=== PATIENT | male | born 1955 | race Caucasian/White ===

== ENCOUNTER → 2016-06-06 | Outpatient (CLI) | payer BC ==
[~2016-06-06] MED LIST: BUPR150T5 PO; BUPR75TA20 PO; BUSP5TAB59 PO; LAMO150T32 PO; LORA0.5T12 PO; NF656 TD; OXYC-57 PO; PREG1CAP36 PO; ZOLP5TAB6 PO; [UNRECOGNIZED DRUG - CODE] TOP
[2016-06-06 09:33] LABS: BASO % 0.7 %; BASO ABS # 0.03 K/uL (0-0.2); COMPLETE YES; EOS % 7.4 %; HEMATOCRIT 40.4 % (42-52); IG% 0.7 %; LYMPH ABS # 0.96 K/uL (1.2-3.4); MEAN CELL VOLUME 83.8 fL (80-100); MEAN CORPUSCULAR HEMOGLOBIN 29.3 pg (25-34); MEAN CORPUSCULAR HGB CONC 34.9 g/dl (32-36); MEAN PLATELET VOLUME 10.3 fL (7.4-10.4); MONO % 17.7 %; NEUT % 50.5 %; PLATELET COUNT 274 K/uL (130-400); RED BLOOD COUNT 4.82 M/uL (4.7-6.1); WHITE BLOOD COUNT 4.17 K/uL (4.8-10.8)
[2016-06-06 09:44] LABS: BLOOD UREA NITROGEN 11 mg/dl (7-18); BUN/CREATININE RATIO 12.1 (10-20); CALCIUM 8.8 mg/dl (8.5-10.1); CARBON DIOXIDE 28 mmol/L (21-32); CHLORIDE 96 mmol/L (98-107); CHOLESTEROL 157 mg/dl (0-200); GLUCOSE 102 mg/dl (70-99); POTASSIUM 4.2 mmol/L (3.5-5.1); SODIUM 131 mmol/L (136-145)
[2016-06-06 09:51] LABS: FERRITIN 65.5 ng/ml (8.0-388.0); HDL CHOLESTEROL 80 mg/dl; LDL CHOLESTEROL CALCULATED 69 mg/dl; PROSTATE SPECIFIC ANTIGEN 0.341 ng/ml (0.000-4.000); TRIGLYCERIDES 38 mg/dl (0-150); VERY LOW DENSITY LIPOPROT CALC 8 mg/dl
[2016-06-06 11:06] LABS: ESTIMATED AVERAGE GLUCOSE 114 mg/dl; HA1C FLAG Normal (Normal)
== END | disposition home or self-care (01) ==
LOC: C.LAB1850 07:55
PROVIDERS: ATTEND Internal Medicine
DX: R73.03 Prediabetes (principal); Z12.5 Encounter for screening for malignant neoplasm of prostate; Z13.220 Encounter for screening for lipoid disorders; Z86.2 Personal history of diseases of the blood and blood-forming organs and certain disorders involving the immune mechanism

== ENCOUNTER 2016-12-16 19:25 | Emergency (ER) | payer BC ==
[~2016-12-16] VITALS: Ht 180.3 cm; Wt 78.0 kg
[~2016-12-16 19:25] MED LIST changes: -BUPR150T5 PO; -BUSP5TAB59 PO; -LAMO150T32 PO; -LORA0.5T12 PO; -NF656 TD; -OXYC-57 PO; -ZOLP5TAB6 PO; -[UNRECOGNIZED DRUG - CODE] TOP
[2016-12-16 19:29] VITALS: TEMP 36.6; Ht 180.3 cm; Wt 78.0 kg
[2016-12-16] MEDS ORDERED: KETOROLAC TROMETHAMINE 30 MG/ML VIAL IV STA (19:34)
[2016-12-16] MEDS ORDERED: ONDANSETRON INJ 2 MG/ML 2 ML VIAL IV STA (19:34)
[2016-12-16] MEDS ORDERED: HYDROmorphone INJ 2 MG/ML SYR/VIAL IV STA ×2 (19:34→21:04)
[2016-12-16] MEDS ORDERED: SODIUM CHLORIDE 0.9% 500ML 500 ML IV STA (19:34)
[2016-12-16] MEDS ORDERED: CYCLOBENZAPRINE HCL 10 MG TAB PO STA (19:34)
--- NOTE | 2016-12-16 19:34 | EMERGENCY ROOM VISIT NOTE ---
History Report prepared by Dipesh: Niharika Ferguson Under the Supervision of: Dr. Nghia Moreno M.D. 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 He was brought to the ED via EMS. He reports he was lifting himself to look out a window in order to get a better view of the front of his home, when he suddenly experienced "sharp" back pain and he "went down to all fours". He rates his discomfort as a 7/10 in severity. Movement worsens his pain. Oxycodone provided minimal relief. The patient admits to a history of a bulging disc and notes he has experienced similar pain before. He was eventually sent to Physical Therapy , which provided good relief. He states he felt totally fine earlier in the day and was getting ready to go out to dinner with his when his pain started. The patient denies any numbness or weakness in his legs. He has experienced no loss of bowel or bladder function. He takes no daily blood thinners. 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 A total of 10 systems reviewed and were otherwise negative. Past Medical & Surgical Medical Problems: (1) Bulging disc (2) Testicular cancer Social History Smoking Status: Never Smoker Alcohol Use: occasionally Drug Use: none Marital Status: Housing Status: lives with family Occupation Status: employed Current/Historical Medications Scheduled Bupropion Hcl (Bupropion Hcl Xl), 450 MG PO QAM Buspirone Hcl (Buspirone Hcl), 5 MG PO BID Halobetasol Propionate (Ultravate 0.05% Cream), 1 APPLN TOP UD Lamotrigine (Lamictal), 150 MG PO BID Scheduled PRN Lorazepam (Lorazepam), 0.5 MG PO DAILY PRN for Anxiety Zolpidem Tartrate (Zolpidem Tartrate), 5 MG PO HS PRN for Sleep Allergies Coded Allergies: No Known Allergies (Unverified Allergy, Mild, 02/04/06) Physical Exam Vital Signs Date Time Temp Pulse Resp B/P (MAP) Pulse Ox O2 Delivery O2 Flow Rate FiO2 12/16/16 20:52 58 20 151/93 94 Room Air 12/16/16 19:29 36.6 59 18 185/96 98 Physical Exam GENERAL: Patient is in no acute distress. HEENT: No acute trauma, normocephalic atraumatic, mucous membranes moist, no nasal congestion, no scleral icterus. NECK: No stridor, no adenopathy, no meningismus, trachea is midline. LUNGS: Clear to auscultation bilaterally, no wheeze, no rhonchi, breath sounds equal. HEART: Without murmurs gallops or rubs, regular rate and rhythm. BACK: Not performed as the patient was having too much pain to roll. ABDOMEN: Soft, nontender, bowel sounds positive, no hernias, no peritonitis. EXTREMITIES: No cyanosis or edema, full range of motion of all the joints without pain or difficulty, no signs for acute trauma. NEUROLOGIC: Oriented x 3, no acute motor or sensory deficits, no focal weakness. Cannot elicit patellar or Achilles reflexes, but the patient is quite tense. SKIN: No rash, no jaundice, no diaphoresis. Medical Decision & Procedures ER Provider Diagnostic Interpretation: Radiology results as stated below per my review and radiologist interpretation: LUMBAR SPINE 5 VIEWS HISTORY: pain, low back COMPARISON: Lumbar spine 02/04/2006. FINDINGS: There is no fracture. Mild dextroscoliosis which could be positional. Multiple surgical clips overlying the spine and right hemipelvis. 9 mm of anterolisthesis of L5 on S1. This appears to be secondary to the bilateral L5 spondylolysis. This is similar to the prior study. Severe disc space narrowing at L5-S1 which has progressed. Mild disc space narrowing at L3-L4 has also progressed. Moderate disc space narrowing at T12-L1 and mild disc space narrowing at L1-L2 has also progressed. Small endplate osteophytes throughout the lumbar spine. IMPRESSION: 1. No acute fractures within the lumbar spine. 2. Progressive multilevel degenerative disc disease as described above. 3. Bilateral L5 spondylolysis with associated grade I/II anterolisthesis. This is similar to the prior study. Electronically signed by: Galo Kumar M.D. 12/16/2016 9:01 PM Laboratory Results 12/16/16 19:45 12/16/16 19:45 Test 12/16/16 19:45 Red Blood Count 4.51 M/uL (4.7-6.1) Mean Corpuscular Volume 86.9 fL (80-100) Mean Corpuscular Hemoglobin 29.3 pg (25-34) Mean Corpuscular Hemoglobin Concent 33.7 g/dl (32-36) RDW Standard Deviation 42.2 fL (36.4-46.3) RDW Coefficient of Variation 13.2 % (11.5-14.5) Mean Platelet Volume 10.4 fL (7.4-10.4) Erythrocyte Sedimentation Rate 2 mm/hr (0-14) Anion Gap 9.0 mmol/L (3-11) Est Creatinine Clear Calc Drug Dose 84.7 ml/min Estimated GFR () 95.1 Estimated GFR (Non- 82.0 BUN/Creatinine Ratio 15.5 (10-20) Calcium Level 8.8 mg/dl (8.5-10.1) Medications Administered Medications (Trade) Dose Ordered Sig/Zechariah Route Start Time Stop Time Status Last Admin Dose Admin Sodium Chloride 500 ml @ 999 mls/hr Q31M STAT IV 12/16/16 19:34 12/16/16 20:04 DC 12/16/16 20:04 999 MLS/HR Cyclobenzaprine HCl (Flexeril Tab) 10 mg NOW STAT PO 12/16/16 19:34 12/16/16 19:37 DC 12/16/16 20:05 10 MG Hydromorphone HCl (Dilaudid Inj) 1 mg NOW STAT IV 12/16/16 19:34 12/16/16 19:37 DC 12/16/16 20:04 1 MG Ondansetron HCl (Zofran Inj) 4 mg NOW STAT IV 12/16/16 19:34 12/16/16 19:37 DC 12/16/16 20:04 4 MG Dexamethasone Sodium Phosphate (Decadron Inj) 10 mg NOW ONCE IV 12/16/16 19:45 12/16/16 19:46 DC 12/16/16 20:05 10 MG Ketorolac Tromethamine (Toradol Inj) 30 mg NOW STAT IV 12/16/16 19:34 12/16/16 19:37 DC 12/16/16 20:04 30 MG Hydromorphone HCl (Dilaudid Inj) 1 mg STK-MED ONCE .ROUTE 12/16/16 21:21 12/16/16 21:22 DC 12/16/16 21:24 1 MG ED Course 1926: The patient was evaluated in room C7. A complete history and physical exam was performed. 1933: Toradol 30 mg IV, Zofran 4 mg IV, Dilaudid 1 mg IV, Flexeril 10 mg PO, NSS 500 ml @ 999 mls/hr IV. 1644: Decadron 10 mg IV. 2116: I reevaluated the patient. He is feeling a little more comfortable. I discussed my recommendation we proceed with an MRI and the patient and his family are agreeable with this plan. 2120: Dilaudid 1 mg IV. 2229: This patient is a sign out to Dr. Jeff Short at the end of my shift. Medical Decision The differential diagnoses considered include lumbar fracture, disc herniation, muscle spasm, nerve impingement and sciatica. There is no leukocytosis or worrisome anemia. No significant electrolyte abnormality or kidney failure. Sedimentation rate is not elevated making ongoing infection/inflammation less likely. Lumbar spine series shows significant arthritis and spurring. There was disc space narrowing. No obvious fractures. MRI of the lumbar spine is pending. The patient received IV Decadron, IV saline, IV Toradol, IV Dilaudid and IV Zofran. He received a second dose of IV Dilaudid. He is still having pain although it is improved. I cannot elicit reflexes in either the left or right lower extremity. The patient does have a history of issues with his back but given the x-ray findings , given how much discomfort he seems to be in, I did think further imaging was warranted. The MRI was felt the best study. The patient's case is going to be assumed by Dr. Short, please see his notes for the final disposition and plan. Please see his notes for the results of the MRI. Medication Reconcilliation Current Medication List: was personally reviewed by me Blood Pressure Screening Patient's blood pressure: Elevated blood pressure Blood pressure disposition: Elevated BP felt to be situational Impression Primary Impression: Lower back pain Scribe Attestation The scribe's documentation has been prepared under my direction and personally reviewed by me in its entirety. I confirm that the note above accurately reflects all work, treatment, procedures, and medical decision making performed by me. Departure Information Dispostion Still a Patient Referrals Pro,Keshav Claros M.D. (PCP) Patient Instructions My [facility]
[2016-12-16] MEDS ORDERED: DEXAMETHASONE SOD INJ 10 MG/ML VIAL IV ONE (19:45)
[2016-12-16] MEDS ORDERED: BUPR150T5 PO (19:46)
[2016-12-16] MEDS ORDERED: BUSP5TAB59 PO (19:46)
[2016-12-16] MEDS ORDERED: ZOLP5TAB6 PO (19:46)
[2016-12-16] MEDS ORDERED: [UNRECOGNIZED DRUG - CODE] TOP (19:46)
[2016-12-16] MEDS ORDERED: LORA0.5T12 PO (19:46)
[2016-12-16] MEDS ORDERED: LAMO150T32 PO (19:46)
--- NOTE | 2016-12-16 21:03 | DIAGNOSTIC IMAGING REPORT ---
LUMBAR SPINE 5 VIEWS HISTORY: pain, low back COMPARISON: Lumbar spine 02/04/2006. FINDINGS: There is no fracture. Mild dextroscoliosis which could be positional. Multiple surgical clips overlying the spine and right hemipelvis. 9 mm of anterolisthesis of L5 on S1. This appears to be secondary to the bilateral L5 spondylolysis. This is similar to the prior study. Severe disc space narrowing at L5-S1 which has progressed. Mild disc space narrowing at L3-L4 has also progressed. Moderate disc space narrowing at T12-L1 and mild disc space narrowing at L1-L2 has also progressed. Small endplate osteophytes throughout the lumbar spine. IMPRESSION: 1. No acute fractures within the lumbar spine. 2. Progressive multilevel degenerative disc disease as described above. 3. Bilateral L5 spondylolysis with associated grade I/II anterolisthesis. This is similar to the prior study. Electronically signed by: Galo Kumar M.D. 12/16/2016 9:01 PM Dictated Date/Time: 12/16/2016 8:59 PM
[2016-12-16] MEDS ORDERED: HYDROmorphone INJ 1 MG/ML SYR ONE (21:21)
[2016-12-16 21:39] LABS: HEMATOCRIT 39.2 % (42-52); MEAN CELL VOLUME 86.9 fL (80-100); MEAN CORPUSCULAR HEMOGLOBIN 29.3 pg (25-34); MEAN CORPUSCULAR HGB CONC 33.7 g/dl (32-36); MEAN PLATELET VOLUME 10.4 fL (7.4-10.4); PLATELET COUNT 289 K/uL (130-400); RED BLOOD COUNT 4.51 M/uL (4.7-6.1); WHITE BLOOD COUNT 6.08 K/uL (4.8-10.8)
[2016-12-16 22:01] LABS: BUN/CREATININE RATIO 15.5 (10-20); CALCIUM 8.8 mg/dl (8.5-10.1); POTASSIUM 3.7 mmol/L (3.5-5.1)
[2016-12-16] MEDS ORDERED: GADAVIST IV PRN (23:15)
[2016-12-17] MEDS ORDERED: LIDODERM (LIDOCAINE) PATCH 5% TD STA (00:29)
[2016-12-17] MEDS ORDERED: PERCOCET HOME PACK PO ONE (00:30)
[2016-12-17] MEDS ORDERED: HYDROmorphone INJ 1 MG/ML SYR IV STA (00:35)
[2016-12-17] MEDS ORDERED: OXYC-57 PO (00:39)
[2016-12-17] MEDS ORDERED: NF656 TD (00:39)
[2016-12-17 01:12] VITALS: BP 149/82; PULSE 62; O2SAT 94
--- NOTE | 2016-12-17 01:29 | EMERGENCY ROOM VISIT NOTE ---
ED Visit Note Received this patient in signout. History and physical verified by me. Patient 's MRI does not show any acute change from previous one done on 02/03/2015. Patient was given an additional dose of Dilaudid here in the emergency department. I will start him on Lidoderm patch and encouraged the need for follow-up with 's office. Patient was also given back exercises. Patient was in agreement with the treatment plan.
--- NOTE | 2016-12-17 07:03 | DIAGNOSTIC IMAGING REPORT ---
LUMBAR SPINE COMBINATION CLINICAL HISTORY: 61 years-old Male presenting with severe pain, history of discitis, pain radiating down the legs, no prior back surgery, no urinary or bowel complaints, history of right foot drop, prior MR from 2015, no injury, history of testicular CA. TECHNIQUE: Multisequence, multiplanar MR imaging of the lumbar spine was performed before and after the administration of intravenous contrast. IV contrast: 7.5 mL of Gadavist. COMPARISON: 02/03/2015. FINDINGS: Localizer images: Unremarkable. Normal lumbar lordosis. On millimeters of grade 2 anterolisthesis of L5 on S1 with suspected bilateral pars defects of L5. No evidence of a destructive osseous lesion. Bone marrow edema at T12-L1 with fluid signal intensity within the T12-L1 disc space. This was not present in 2014. Minimal surrounding inflammatory change in the paraspinal region at this level, but evaluation limited by lack of inclusion of this level on axial imaging. Subtle increased signal intensity within the L1-2 disc space also noted, although without associated bony edema of the adjacent endplates. Minimal bony edema also noted along the endplates at L5-S1 without significant fluid in the L5-S1 disc space, likely degenerative in etiology. Prominent T1 hypointense, T2 hypointense deformity of the anterior aspect of the endplate of L1, may indicate a Schmorl's node. Multilevel degenerative changes noted with disc bulges at nearly every level. This results in varying degrees of effacement of the ventral thecal sac without evidence of impingement of the cauda equina. Facet arthropathy also noted in the lower lumbar spine. In combination with anterolisthesis of L5 on S1, severe right and mild left neural foraminal narrowing at L5-S1 results. Mass effect on the exiting right L5 nerve root suspected. Remaining levels demonstrate varying degrees of neural foraminal narrowing. The spinal cord ends in good position at the inferior endplate of T12. Cauda equina normal in appearance. No dural collection. Notably, axial postcontrast imaging did not include the T12-L1 level, although this was fully included on sagittal imaging. No abnormal enhancement of the spinal cord or cauda equina. Paraspinal soft tissues demonstrate suspected left parapelvic renal cysts. Otherwise soft tissues within normal limits. IMPRESSION: 1. Findings most concerning for discitis osteomyelitis at T12-L1. Notably, this is discrepant from the preliminary report, which is favored a degenerative etiology. 2. Subtle fluid signal intensity within the L1-2 disc space without associated endplate edema, possibly degenerative in etiology. 3. Bony edema along the endplates of L5-S1 without associated fluid signal within the L5-S1 disc space is likely degenerative in etiology, in part related to grade 2 anterolisthesis of L5 on S1. 4. Varying degrees of neural foraminal narrowing, most severe on the right at L5-S1, where there is mass effect on the exiting right L5 nerve root. 5. No evidence of cauda equina impingement. 6. Additional multilevel degenerative changes as above. 7. No convincing evidence of a destructive osseous lesion to suggest osseous metastatic disease. The report will be called/faxed according to standard departmental protocol. Electronically signed by: Everton Del Real M.D. 12/17/2016 7:01 AM Dictated Date/Time: 12/17/2016 6:50 AM
== END 2016-12-17 01:14 | disposition home or self-care (01) ==
LOC: EDBD 19:25 → C.EDC 19:26
DX: M54.5 Low back pain (principal); M53.9 Dorsopathy, unspecified; M47.816 Spondylosis without myelopathy or radiculopathy, lumbar region; M25.78 Osteophyte, vertebrae; M48.06 Spinal stenosis, lumbar region; Z85.47 Personal history of malignant neoplasm of testis

== ENCOUNTER 2016-12-19 13:04 | Emergency (ER) | payer BC ==
[~2016-12-19] VITALS: Ht 180.3 cm; Wt 75.7 kg
[~2016-12-19 13:04] MED LIST changes: +BUPR150T5 PO; -BUPR75TA20 PO; +BUSP5TAB59 PO; +LAMO150T32 PO; +LORA0.5T12 PO; +NF656 TD; +OXYC-57 PO; -PREG1CAP36 PO; +ZOLP5TAB6 PO; +[UNRECOGNIZED DRUG - CODE] TOP
[2016-12-19 13:11] VITALS: TEMP 36.5; Ht 180.3 cm; Wt 75.7 kg
--- NOTE | 2016-12-19 13:31 | EMERGENCY ROOM VISIT NOTE ---
History Report prepared by Dipesh: Milady Mccann Under the Supervision of: Dr. Nghia Moreno M.D. First contact with patient: 13:14 Chief Complaint: OTHER COMPLAINT Stated Complaint: FOLLOW UP TO 12/16 VISIT-LWR BACK PAIN History of Present Illness The patient is a 61 year old male who presents to the Emergency Room with complaints of a follow-up visit. The patient states that he feels fine today. He denies numbness and tingling down his legs. The patient was here on December 16 for back pain. His lab testing was reassuring. The night time MRI of his lower back was read as arthritic with non-concerning findings, but the day time reading the following morning read it as concerning for discitis. He has not had fever or chills, he states his back no longer is painful. Source of History: patient Onset: today Position: other (global) Quality: other (follow-up visit) Timing: resolved Associated Symptoms: No numbness Review of Systems See HPI for pertinent positives & negatives. A total of 10 systems reviewed and were otherwise negative. Past Medical & Surgical Medical Problems: (1) Bulging disc (2) Testicular cancer Family History No pertinent family history stated. Social History Smoking Status: Never Smoker Alcohol Use: occasionally Drug Use: none Marital Status: Housing Status: lives with family Occupation Status: employed Current/Historical Medications Scheduled Bupropion Hcl (Bupropion Hcl Xl), 450 MG PO QAM Buspirone Hcl (Buspirone Hcl), 5 MG PO BID Halobetasol Propionate (Ultravate 0.05% Cream), 1 APPLN TOP UD Lamotrigine (Lamictal), 150 MG PO DAILY Scheduled PRN Lorazepam (Lorazepam), 0.5 MG PO DAILY PRN for Anxiety Zolpidem Tartrate (Zolpidem Tartrate), 5 MG PO HS PRN for Sleep Allergies Coded Allergies: No Known Allergies (Unverified , 02/04/06) Physical Exam Vital Signs Date Time Temp Pulse Resp B/P (MAP) Pulse Ox O2 Delivery O2 Flow Rate FiO2 12/19/16 13:11 36.5 70 18 138/81 100 Room Air Physical Exam GENERAL: Patient is in no acute distress. HEENT: No acute trauma, normocephalic atraumatic, mucous membranes moist, no nasal congestion, no scleral icterus. NECK: No stridor, no adenopathy, no meningismus, trachea is midline. LUNGS: Clear to auscultation bilaterally, no wheeze, no rhonchi, breath sounds equal. HEART: Without murmurs gallops or rubs, regular rate and rhythm. ABDOMEN: Soft, nontender, bowel sounds positive, no hernias, no peritonitis. EXTREMITIES: No cyanosis or edema, full range of motion of all the joints without pain or difficulty, no signs for acute trauma. NEUROLOGIC: Oriented x 3, no acute motor or sensory deficits, no focal weakness. SKIN: No rash, no jaundice, no diaphoresis. Medical Decision & Procedures ER Provider Diagnostic Interpretation: December 16: LUMBAR SPINE COMBINATION CLINICAL HISTORY: 61 years-old Male presenting with severe pain, history of discitis, pain radiating down the legs, no prior back surgery, no urinary or bowel complaints, history of right foot drop, prior MR from 2014, no injury, history of testicular CA. TECHNIQUE: Multisequence, multiplanar MR imaging of the lumbar spine was performed before and after the administration of intravenous contrast. IV contrast: 7.5 mL of Gadavist. COMPARISON: 02/03/2015. FINDINGS: Localizer images: Unremarkable. Normal lumbar lordosis. On millimeters of grade 2 anterolisthesis of L5 on S1 with suspected bilateral pars defects of L5. No evidence of a destructive osseous lesion. Bone marrow edema at T12-L1 with fluid signal intensity within the T12-L1 disc space. This was not present in 2015. Minimal surrounding inflammatory change in the paraspinal region at this level, but evaluation limited by lack of inclusion of this level on axial imaging. Subtle increased signal intensity within the L1-2 disc space also noted, although without associated bony edema of the adjacent endplates. Minimal bony edema also noted along the endplates at L5-S1 without significant fluid in the L5-S1 disc space, likely degenerative in etiology. Prominent T1 hypointense, T2 hypointense deformity of the anterior aspect of the endplate of L1, may indicate a Schmorl's node. Multilevel degenerative changes noted with disc bulges at nearly every level. This results in varying degrees of effacement of the ventral thecal sac without evidence of impingement of the cauda equina. Facet arthropathy also noted in the lower lumbar spine. In combination with anterolisthesis of L5 on S1, severe right and mild left neural foraminal narrowing at L5-S1 results. Mass effect on the exiting right L5 nerve root suspected. Remaining levels demonstrate varying degrees of neural foraminal narrowing. The spinal cord ends in good position at the inferior endplate of T12. Cauda equina normal in appearance. No dural collection. Notably, axial postcontrast imaging did not include the T12-L1 level, although this was fully included on sagittal imaging. No abnormal enhancement of the spinal cord or cauda equina. Paraspinal soft tissues demonstrate suspected left parapelvic renal cysts. Otherwise soft tissues within normal limits. IMPRESSION: 1. Findings most concerning for discitis osteomyelitis at T12-L1. Notably, this is discrepant from the preliminary report, which is favored a degenerative etiology. 2. Subtle fluid signal intensity within the L1-2 disc space without associated endplate edema, possibly degenerative in etiology. 3. Bony edema along the endplates of L5-S1 without associated fluid signal within the L5-S1 disc space is likely degenerative in etiology, in part related to grade 2 anterolisthesis of L5 on S1. 4. Varying degrees of neural foraminal narrowing, most severe on the right at L5-S1, where there is mass effect on the exiting right L5 nerve root. 5. No evidence of cauda equina impingement. 6. Additional multilevel degenerative changes as above. 7. No convincing evidence of a destructive osseous lesion to suggest osseous metastatic disease. The report will be called/faxed according to standard departmental protocol. Electronically signed by: Everton Del Real M.D. 12/17/2016 7:01 AM Dictated Date/Time: 12/17/2016 6:50 AM The status of this report is Signed. Laboratory Results 12/19/16 13:45 Red Blood Count 4.84, Mean Corpuscular Volume 87.6, Mean Corpuscular Hemoglobin 30.2, Mean Corpuscular Hemoglobin Concent 34.4, Mean Platelet Volume 10.2, Neutrophils (%) (Auto) 57.5, Lymphocytes (%) (Auto) 29.5, Monocytes (%) (Auto) 9.0, Eosinophils (%) (Auto) 2.6, Basophils (%) (Auto) 0.7, Neutrophils # (Auto) 3.14, Lymphocytes # (Auto) 1.61, Monocytes # (Auto) 0.49, Eosinophils # (Auto) 0.14, Basophils # (Auto) 0.04 12/19/16 13:45 Test 12/19/16 13:45 White Blood Count 5.46 K/uL (4.8-10.8) Red Blood Count 4.84 M/uL (4.7-6.1) Hemoglobin 14.6 g/dL (14.0-18.0) Hematocrit 42.4 % (42-52) Mean Corpuscular Volume 87.6 fL (80-100) Mean Corpuscular Hemoglobin 30.2 pg (25-34) Mean Corpuscular Hemoglobin Concent 34.4 g/dl (32-36) Platelet Count 294 K/uL (130-400) Mean Platelet Volume 10.2 fL (7.4-10.4) Neutrophils (%) (Auto) 57.5 % Lymphocytes (%) (Auto) 29.5 % Monocytes (%) (Auto) 9.0 % Eosinophils (%) (Auto) 2.6 % Basophils (%) (Auto) 0.7 % Neutrophils # (Auto) 3.14 K/uL (1.4-6.5) Lymphocytes # (Auto) 1.61 K/uL (1.2-3.4) Monocytes # (Auto) 0.49 K/uL (0.11-0.59) Eosinophils # (Auto) 0.14 K/uL (0-0.5) Basophils # (Auto) 0.04 K/uL (0-0.2) RDW Standard Deviation 42.1 fL (36.4-46.3) RDW Coefficient of Variation 13.1 % (11.5-14.5) Immature Granulocyte % (Auto) 0.7 % Immature Granulocyte # (Auto) 0.04 K/uL (0.00-0.02) Erythrocyte Sedimentation Rate 3 mm/hr (0-14) Anion Gap 5.0 mmol/L (3-11) Est Creatinine Clear Calc Drug Dose 65.1 ml/min Estimated GFR () 69.2 Estimated GFR (Non- 59.7 BUN/Creatinine Ratio 12.6 (10-20) Calcium Level 9.3 mg/dl (8.5-10.1) C-Reactive Protein < 0.29 mg/dl (0-0.29) Laboratory results reviewed by me. ED Course 1315: The patient was evaluated in room B6. A complete history and physical exam was performed. 1327: Discussed the patient's case. He says that as long as the patient's laboratories are okay, he can go home and Dr. Wang will see him in his office. 1420: The patient's lab results are normal. 1425: Reevaluated the patient. Discussed results and discharge instructions: He verbalized understanding and agreement. The patient is ready for discharge. Medical Decision The patient is a 61 year old male who presents to the ED with complaints of a follow-up visit. Differential diagnoses considered include arthritis, discitis , osteomyelitis, acute on chronic pain, and MRI over read. There is no leukocytosis or concerning anemia. No significant electrolyte abnormality or kidney failure. Sedimentation rate and CRP are both normal. Blood cultures are pending. On exam, the patient has no pain, he is not toxic or febrile. The patient presents for evaluation because of an MRI reading. The initial read was not concerning, the second reading was concerning for discitis or osteomyelitis. I discussed the case with Dr. Wang of spinal surgery. As the patient is asymptomatic, he is being discharged with outpatient follow-up. Discitis/ osteomyelitis seems very unlikely. The patient was encouraged to return for fever, worsening symptoms or chills. Medication Reconcilliation Current Medication List: was personally reviewed by me Blood Pressure Screening Patient's blood pressure: Normal blood pressure Consults Time Called: 1321 Consulting Physician: Dr. Wang-Orthopedics Returned Call: [phone] Discussed the patient's case. He says that as long as the patient's laboratories are okay, he can go home and Dr. Wang will see him in his office. Impression Primary Impression: Abnormal MRI, lumbar spine Scribe Attestation The scribe's documentation has been prepared under my direction and personally reviewed by me in its entirety. I confirm that the note above accurately reflects all work, treatment, procedures, and medical decision making performed by me. Departure Information Dispostion Home / Self-Care Referrals Keshav Cardozo M.D. (PCP) Rios Wang, DO Forms HOME CARE DOCUMENTATION FORM, IMPORTANT VISIT INFORMATION, WORK / SCHOOL INSTRUCTIONS Patient Instructions My [facility] Additional Instructions talk with Dr. Sefter----call for an appt today or tomorrow return for fever or worsening symptoms lab testing today was ok
[2016-12-19 14:02] LABS: BASO % 0.7 %; BASO ABS # 0.04 K/uL (0-0.2); COMPLETE YES; EOS % 2.6 %; HEMATOCRIT 42.4 % (42-52); IG% 0.7 %; LYMPH % 29.5 %; LYMPH ABS # 1.61 K/uL (1.2-3.4); MEAN CELL VOLUME 87.6 fL (80-100); MEAN CORPUSCULAR HEMOGLOBIN 30.2 pg (25-34); MEAN CORPUSCULAR HGB CONC 34.4 g/dl (32-36); MEAN PLATELET VOLUME 10.2 fL (7.4-10.4); NEUT % 57.5 %; PLATELET COUNT 294 K/uL (130-400); RED BLOOD COUNT 4.84 M/uL (4.7-6.1); WHITE BLOOD COUNT 5.46 K/uL (4.8-10.8)
[2016-12-19 14:15] LABS: BLOOD UREA NITROGEN 16 mg/dl (7-18); BUN/CREATININE RATIO 12.6 (10-20); C-REACTIVE PROTEIN < 0.29 mg/dl (0-0.29); CALCIUM 9.3 mg/dl (8.5-10.1); CARBON DIOXIDE 29 mmol/L (21-32); CHLORIDE 101 mmol/L (98-107); GLUCOSE 97 mg/dl (70-99); SODIUM 135 mmol/L (136-145)
[2016-12-19 14:39] VITALS: BP 145/94; PULSE 62; O2SAT 97
== END 2016-12-19 14:36 | disposition home or self-care (01) ==
LOC: C.EDB 13:05
DX: R93.7 Abnormal findings on diagnostic imaging of other parts of musculoskeletal system (principal); C80.1 Malignant (primary) neoplasm, unspecified

== ENCOUNTER → 2017-05-23 | Outpatient (CLI) | payer BC ==
[~2017-05-23] MED LIST changes: +LAMO150T PO; -LAMO150T32 PO; -NF656 TD; -OXYC-57 PO
[2017-05-23 09:36] LABS: BASO % 0.9 %; BASO ABS # 0.04 K/uL (0-0.2); EOS ABS # 0.26 K/uL (0-0.5); HEMATOCRIT 39.1 % (42-52); HEMOGLOBIN 13.8 g/dL (14.0-18.0); IG# 0.02 K/uL (0.00-0.02); LYMPH % 31.5 %; LYMPH ABS # 1.37 K/uL (1.2-3.4); MEAN CELL VOLUME 86.1 fL (80-100); MEAN CORPUSCULAR HEMOGLOBIN 30.4 pg (25-34); MEAN CORPUSCULAR HGB CONC 35.3 g/dl (32-36); MEAN PLATELET VOLUME 10.3 fL (7.4-10.4); MONO ABS # 0.39 K/uL (0.11-0.59); NEUT % 52.1 %; NEUT ABS # 2.27 K/uL (1.4-6.5); PLATELET COUNT 315 K/uL (130-400); RED CELL DISTRIBUTION WIDTH CV 12.7 % (11.5-14.5); RED CELL DISTRIBUTION WIDTH SD 39.7 fL (36.4-46.3); WHITE BLOOD COUNT 4.35 K/uL (4.8-10.8)
[2017-05-23 09:53] LABS: ALBUMIN 3.7 gm/dl (3.4-5.0); ALT/SGPT 24 U/L (12-78); BLOOD UREA NITROGEN 15 mg/dl (7-18); CALCIUM 8.8 mg/dl (8.5-10.1); CARBON DIOXIDE 28 mmol/L (21-32); CHOLESTEROL 172 mg/dl (0-200); CREATININE 1.06 mg/dl (0.60-1.40); GLUCOSE 91 mg/dl (70-99); POTASSIUM 4.3 mmol/L (3.5-5.1); SODIUM 133 mmol/L (136-145)
[2017-05-23 09:56] LABS: HEMOGLOBIN A1C 5.7 % (4.5-5.6)
[2017-05-23 09:58] LABS: ALKALINE PHOSPHATASE 77 U/L (45-117); AST/SGOT 27 U/L (15-37); LDL CHOLESTEROL CALCULATED 100 mg/dl; TOTAL PROTEIN 6.8 gm/dl (6.4-8.2)
== END | disposition home or self-care (01) ==
LOC: C.LAB1850 08:34
PROVIDERS: ATTEND Internal Medicine
DX: D64.9 Anemia, unspecified (principal); Z13.220 Encounter for screening for lipoid disorders

== ENCOUNTER 2019-11-22 09:14 | Inpatient (IN) ==
--- NOTE | 2019-11-09 15:39 | PAT Medication Instructions ---
Medication Instructions Date of Service November 09, 2019 Home Medications Medication Instructions Recorded halobetasol propionate 0.05 % 1 appln TOP DAILY #15 gm 10/22/18 topical cream sildenafil (pulm.hypertension) 20 20 mg PO DAILY PRN #10 tab 10/24/ mg tablet bupropion HCl 150 mg 24 hr tablet, extended release 450 mg PO QAM buspirone 10 mg tablet 10 mg PO BID lamotrigine 150 mg tablet 150 mg PO HS halobetasol propionate 0.05 % topical cream 1 appln TOP DAILY lorazepam 0.5 mg tablet 0.5 mg PO DAILY PRN zolpidem 5 mg tablet 5 mg PO ONCE PRN sildenafil (pulm.hypertension) 20 mg tablet 20 mg PO DAILY PRN mirtazapine [Remeron] 15 mg PO HS omeprazole 20 mg PO QAM STOP taking 24 hours before surgery halobetasol propionate 0.05 % topical cream 1 appln TOP DAILY DO NOT take the morning of surgery sildenafil 20 mg tablet 20 mg PO DAILY PRN Take morning of surgery With a small sip of water, OTHERWISE NOTHING TO EAT OR DRINK AFTER MIDNIGHT: bupropion HCl 150 mg 24 hr tablet, extended release 450 mg PO QAM buspirone 10 mg tablet 10 mg PO BID lorazepam 0.5 mg tablet 0.5 mg PO DAILY PRN (if needed) omeprazole 20 mg PO QAM Take evening before surgery buspirone 10 mg tablet 10 mg PO BID lamotrigine 150 mg tablet 150 mg PO HS lorazepam 0.5 mg tablet 0.5 mg PO DAILY PRN (if needed) zolpidem 5 mg tablet 5 mg PO ONCE PRN (if needed) sildenafil 20 mg tablet 20 mg PO DAILY PRN (if needed) mirtazapine [Remeron] 15 mg PO HS Other Notes If you have any questions please call us at [phone] or [phone] or [phone] or [phone]
--- NOTE | 2019-11-09 15:54 | Anesthesiology Consultation ---
Date of Service November 09, 2019 Assessment & Plan (1) Encounter for pre-operative examination: COVID Status: As of 11/08 assessment, patient denies travel to endemic area, known exposure/sick contacts, or symptoms of COVID19. Patient instructed that they and their household members must follow strict social distancing guidelines, wear a mask in public and avoid travel for 14 days prior to surgery. Patient will be traveling to [facility] for vacation with his 11/11-11/13; reports will be in a remote area, plan to just relax at a pope house, will not be in any crowded areas. Preoperative COVID19 testing to be completed prior to surgery per surgeon's arrangements. Patient made aware to self-isolate as much as possible between COVID testing and surgery. Chart Review Chart Review: Acceptable Risk for Surgery and Patient seen in Pre Admission Testing Teaching & Discussion Instructed NPO after midnight before surgery, except medications with 15 cc of water. Medication instructions provided according to the PAT guidelines. History Surgery Operation Date: 11/22/19 11:05 Proposed Procedures p L4-S1 Decompression Fusion, Spinal Cord Monitoring - Ace Montague DO Height/Weight Height: 5 ft 11 in Weight: 77.4 kg Allergies Allergy/AdvReac Type Severity Reaction Status Date / Time No Known Allergies Allergy Verified 11/09/19 08:53 Medications Home Medications Medication Instructions Recorded Confirmed Last Taken bupropion HCl 150 mg 24 hr tablet, 450 mg PO QAM #90 tab 10/13/18 11/09/19 08/30/19 extended release buspirone 10 mg tablet 10 mg PO BID #60 tab 10/13/18 11/09/19 08/30/19 lamotrigine 150 mg tablet 150 mg PO HS #30 tab 10/13/18 11/09/19 08/30/19 halobetasol propionate 0.05 % 1 appln TOP DAILY #15 gm 10/22/18 11/09/19 Unknown topical cream lorazepam 0.5 mg tablet 0.5 mg PO DAILY PRN tab 10/22/18 11/09/19 Unknown zolpidem 5 mg tablet 5 mg PO ONCE PRN tab 10/22/18 11/09/19 Unknown sildenafil (pulm.hypertension) 20 20 mg PO DAILY PRN #10 tab 10/25/19 11/09/19 Unknown mg tablet mirtazapine [Remeron] 15 mg PO HS 11/09/19 11/09/19 Unknown omeprazole 20 mg PO QAM 11/09/19 11/09/19 Unknown Past Medical History Medical History Anxiety Tran's esophagus (Acute) Depression (Acute) Diverticulosis (Inactive) Esophageal reflux (Acute) Hearing loss (Inactive) no hearing aids History of testicular cancer (Resolved) age 23 -- chemo Obstructive sleep apnea Has a CPAP, does not use it. Peripheral neuropathy (Acute) Exercise / Class Metabolic Activity II 4-5 Yardwork/Stairs/Walk up hill Past Family History Family History Unknown Diabetes Cancer Mother Hypotension Anxiety Father Depression Pancreatic cancer COPD (chronic obstructive pulmonary disease) Deafness Grandmother Diabetes Uncle Colon cancer Grandfather Diabetes Uncle Cancer Denies family history of Ovarian cancer Prostate cancer Myocardial infarction Breast cancer Past Surgical History Surgical History H/O esophagogastroduodenoscopy History of dental surgery implant History of orchiectomy Hx of colonoscopy Hx of laceration of skin left ring finger - accident with saw Past Anesthesia History No Hx of Anesthesia Complications and No Family Hx of Anesthesia Complications History of PONV No Hx of PONV and Hx of Motion Sickness (Has had vertigo) Social History Smoking Status: Never smoker Do You Dip or Chew Tobacco: No Hx Alcohol Use: Yes alcohol intake frequency: a few times a month Hx Substance Use: No substance use type: does not use Review of Systems Pt denies any recent chest pain, shortness of breath, palpitations, cough, fever, URI, or uncontrolled acid reflux. Physical Exam Vital Signs BP: 160/81 P: 60bpm SPO2: 98% RA T: 98.2 F R: 16 ENMT Mouth: + dental restorations (implant bottom incisor); no chipped teeth and no loose teeth Thyromental Distance: > or= 3.5 Finger Breadths Mallampati Class: I Neck normal visual inspection and + facial hair (very short soul patch and mustache); neck extension not limited Respiratory normal respiratory effort Auscultation: lungs clear to auscultation bilaterally Cardiovascular Rate/Rhythm: regular rate and regular rhythm Heart Sounds: no murmur Vessels: no carotid bruit Extremities: no edema Testing Laboratory Results PT 10.0 Seconds (9.0-12.0) 11/09/19 16:05 INR 0.9 (0.9-1.1) 11/09/19 16:05 APTT 30.9 Seconds (21.0-31.0) 11/09/19 16:05 Urine Color Yellow 11/09/19 16:05 Urine Appearance Clear (Clear) 11/09/19 16:05 Urine pH 8.0 (4.5-7.5) H 11/09/19 16:05 Ur Specific [place] 1.008 (1.000-1.030) 11/09/19 16:05 Urine Protein Negative (Negative) 11/09/19 16:05 Urine Glucose (UA) Negative (Negative) 11/09/19 16:05 Urine Ketones Negative (Negative) 11/09/19 16:05 Urine Nitrite Negative (Negative) 11/09/19 16:05 Ur Leukocyte Esterase Negative (Negative) 11/09/19 16:05 Blood Type O Negative 11/09/19 16:05 Antibody Screen NEGATIVE 11/09/19 16:05 10/20/19 WBC: 4.07 H/H: 13.6/40.5 PLATELETS: 332 SODIUM: 133 POTASSIUM: 4.5 CHLORIDE: 100 CO2: 28 BUN: 14 CREATININE: 1.04 GLUCOSE: 98 Electrocardiogram Date: 11/09/19 Findings: + SB @ (59bpm) Voltage criteria for LVH. Chest X-Ray Date: 11/09/19 Findings: + NAD
[2019-11-09 16:28] LABS: Appearance Urine Clear (Clear); Bilirubin Urine Negative (Negative); Blood Urine Negative (Negative); Color Urine Yellow; Glucose Urine UA Negative (Negative); Ketones Urine Negative (Negative); Leukocyte Esterase Urine Negative (Negative); Nitrite Urine Negative (Negative); Protein Urine Negative (Negative); Specific Gravity Urine 1.008 (1.000-1.030); Urobilinogen Urine Negative (Negative)
--- NOTE | 2019-11-09 16:33 | XRay Report ---
TWO VIEW CHEST CLINICAL HISTORY: Preoperative examination. FINDINGS: PA and lateral chest radiographs are compared to study dated 09/13/2015. The cardiomediastina l silhouette is unremarkable. The lungs and pleural spaces are clear. There is no pneumothorax. The bony thorax appears intact. Surgical clips are noted in the upper abdomen. IMPRESSION: No active disease in the chest. ACT 112: Negative or not required by law. Electronically signed by: Nghia Pham M.D. 11/09/2019 4:32 PM
[2019-11-09 16:40] LABS: INR 0.9 (0.9-1.1); Partial Thromboplastin Ratio 1.1; Partial Thromboplastin Time 30.9 Seconds (21.0-31.0)
--- NOTE | 2019-11-09 16:44 | Electrocardiogram Report ---
Test Reason : Blood Pressure : / mmHG Vent. Rate : 059 BPM Atrial Rate : 059 BPM P-R Int : 166 ms QRS Dur : 102 ms QT Int : 426 ms P-R-T Axes : 061 071 051 degrees QTc Int : 421 ms Sinus bradycardia Voltage criteria for left ventricular hypertrophy Abnormal ECG No previous ECGs available Confirmed by Hussein Mart ([id number]) on 11/09/2019 4:44:39 PM Referred By: Ace Montague Confirmed By:Donn Mart
[~2019-11-22 09:14] MED LIST changes: +ACETAMINOPHEN 500 MG TAB PO SCH; -BUPR150T5 PO; -BUSP5TAB59 PO; +CEFAZOLIN 1000MG 1,000 MG/7.5 ML SYR IV SCH; +CeleBREX 200 MG CAP PO SCH; +GABAPENTIN 600 MG DOSE PO SCH; -LAMO150T PO; -LORA0.5T12 PO; +LR 15ML/HR IV SCH; -ZOLP5TAB6 PO; -[UNRECOGNIZED DRUG - CODE] TOP
[2019-11-22] MEDS ORDERED: LABETALOL HCL IV 5 MG/ML 20ML IV PRN (10:15)
[2019-11-22] MEDS ORDERED: MEPERIDINE HCL 25 MG/ML CARP/VIAL IV PRN (10:15)
[2019-11-22] MEDS ORDERED: ATROPINE SULFATE 0.1 MG/ML 10ML SYR IV PRN (10:15)
[2019-11-22] MEDS ORDERED: HYDROmorphone INJ 1 MG/ML SYRINGE IV PRN ×2 (10:15→17:50)
[2019-11-22] MEDS ORDERED: ePHEDrine sulfate 50 MG/ML AMP IV PRN (10:15)
[2019-11-22] MEDS ORDERED: PHENYLEPHRINE 100MCG/ML 5ML SYR IV PRN (10:15)
[2019-11-22] MEDS ORDERED: ONDANSETRON INJ 2 MG/ML 2 ML VIAL IV PRN ×2 (10:15→17:50)
--- NOTE | 2019-11-22 13:13 | History & Physical Bridge Note ---
Date of Service November 22, 2019 History & Physical Bridge Note I have examined the patient, reviewed the History & Physical and in the interval since the performance of the History & Physical I have noted the following changes of clinical significance: no changes noted
[2019-11-22] MEDS ORDERED: MIDAZOLAM HCL 1 MG/ML 2ML VIAL ONE (13:14)
[2019-11-22] MEDS ORDERED: ONDANSETRON INJ 2 MG/ML 2 ML VIAL ONE ×2 (13:15→15:37)
[2019-11-22] MEDS ORDERED: PROPOFOL IV EMULSION 10 MG/ML 20 ML VIAL IV ONE (13:15)
[2019-11-22] MEDS ORDERED: fentaNYL citrate 100 MCG/2 ML VIAL ONE ×3 (13:15→16:20)
[2019-11-22] MEDS ORDERED: ROCURONIUM BROMIDE 10 MG/ML 5 ML VIAL IV ONE ×3 (13:15→14:45)
[2019-11-22] MEDS ORDERED: LIDOCAINE HCL 2% 2 ML VIAL/AMP(20MG/ML) INFIL ONE ×2 (13:15)
--- NOTE | 2019-11-22 13:15 | History & Physical Report ---
Date of Service November 22, 2019 Assessment & Plan (1) Neurogenic claudication due to lumbar spinal stenosis: Admission and Anticipated Discharge Date Admission Date: L4-S1 decompression fusion History of Present Illness Chief Complaint: Back and leg pain Primary Care Provider: Keshav Cardozo MD This is a 62-year-old male who presents with persistent back and leg pain after failing extensive course of nonoperative care is here for surgical intervention. Allergies Allergy/AdvReac Type Severity Reaction Status Date / Time No Known Allergies Allergy Verified 11/22/19 09:57 Home Medications Home Medications Medication Instructions Recorded Confirmed Type bupropion HCl 150 mg 24 hr tablet, 450 mg PO QAM #90 tab 10/13/18 11/22/19 History extended release buspirone 10 mg tablet 10 mg PO BID #60 tab 10/13/18 11/22/19 History lamotrigine 150 mg tablet 150 mg PO HS #30 tab 10/13/18 11/22/19 History lorazepam 0.5 mg tablet 0.5 mg PO DAILY PRN tab 10/22/18 11/22/19 History zolpidem 5 mg tablet 5 mg PO ONCE PRN tab 10/22/18 11/22/19 History sildenafil (pulm.hypertension) 20 20 mg PO DAILY PRN #10 tab 10/25/19 11/22/19 Rx mg tablet mirtazapine [Remeron] 15 mg PO HS 11/09/19 11/22/19 History omeprazole 20 mg PO QAM 11/09/19 11/22/19 History fexofenadine [Mala Allergy] 10 mg PO DAILY PRN 11/22/19 11/22/19 History halobetasol propionate 1 appln TOP DAILY PRN 11/22/19 11/22/19 History Past Med/Surg History Medical History Anxiety Tran's esophagus (Acute) Depression (Acute) Diverticulosis (Inactive) Esophageal reflux (Acute) Hearing loss (Inactive) no hearing aids History of testicular cancer (Resolved) age 23 -- chemo Obstructive sleep apnea Has a CPAP, does not use it. Peripheral neuropathy (Acute) Surgical History H/O esophagogastroduodenoscopy History of dental surgery implant History of orchiectomy Hx of colonoscopy Hx of laceration of skin left ring finger - accident with saw Family History Unknown Diabetes Cancer Mother Hypotension Anxiety Father Depression Pancreatic cancer COPD (chronic obstructive pulmonary disease) Deafness Grandmother Diabetes Uncle Colon cancer Grandfather Diabetes Uncle Cancer Denies family history of Ovarian cancer Prostate cancer Myocardial infarction Breast cancer Social History Smoking Status: Never smoker Second Hand Exposure: No; Do You Dip or Chew Tobacco: No; Tobacco Cessation Education Requested by Patient: No Hx Alcohol Use: Yes Hx Substance Use: No Preferred Language: Liberian Communication Ability: Effective Visual Impairment: No Limitations Hearing Ability: Hard of Hearing Compensation Programs Manager Required: No Beliefs That Will Affect Care: None marital status: Current Living Situation: Family current occupational status: employed Other Information That Helps Us Care for You: No Feels Safe at Home: Yes Safety Concerns: Feels Safe At This Time Childhood Exposure to Second-Hand Smoke: Yes Dental Care, Regularly: Yes Physical Activity Frequency: Daily Seatbelt Use: always Sunscreen Use: Yes Physical Exam Physical Exam: Patient is alert and oriented neurologically intact. Heart regular rate and rhythm. Lungs clear to auscultation. Results & Data ([facility]) Vital Signs (Past 12 Hours) Vital Signs Temp Pulse Resp BP Pulse Ox 11/22/19 10:05 37.2 C 60 18 162/87 H 95
[2019-11-22] MEDS ORDERED: BACITRACIN INJ 50,000 UNIT VIAL ONE (14:00)
[2019-11-22] MEDS ORDERED: BUPIVACAINE/EPINEPHRINE 0.25% 1:200,000 30 ML VIAL ONE (14:00)
[2019-11-22] MEDS ORDERED: ePHEDrine sulfate 50 MG/ML AMP ONE ×2 (14:32→15:15)
[2019-11-22] MEDS ORDERED: SODIUM CHLORIDE 0.9% INJ 10 ML VIAL ONE (14:33)
[2019-11-22] MEDS ORDERED: FLOSEAL HEMOSTATIC MATRIX 10ML TOP ONE (15:05)
[2019-11-22] MEDS ORDERED: GLYCOPYRROLATE 0.2 MG/ML VIAL ONE (15:37)
[2019-11-22] MEDS ORDERED: NEOSTIGMINE METHYLSULFATE 1 MG/ML 10ML VIAL ONE (15:37)
--- NOTE | 2019-11-22 16:27 | Operative Report ---
Post Operative Report Pre & Post Diagnosis Operation Date: 11/22/19 10:45 Pre-Op Diagnosis: Neurogenic Claudication due to Lumbar Spinal Stenosis Spondylolisthesis L5-S1 Post-Op Diagnosis: Same I identified the patient and participated in the time-out.: Yes Procedure Operation Date: 11/22/19 10:45 Actual Procedures 1 lumbar decompression bilateral medial facetectomies and foraminotomies L3-4, L4-5 and L5-S1 per #2 posterior spinal fusion L4-5 L5-S1 per #3 placement posterior instrumentation L4-5 L5-S1. #4 interbody fusion L4-5 L5-S1. #5 placement peek cage 12 x 26 mm L4-5 and 11 x 26 mm at L5-S1. #6 placement of locally harvested morselized autograft in the posterior lateral gutters per #7 placement infuse collagen sponge, master graft in the posterior gutters and ostial amp and interbody space. Surgeon Ace Montague, Invoice Checker Daija Jansen Estimated Blood Loss 150 Findings Consistent with Post-Op Diagnosis Specimens None Indications This is a 64-year-old male that presents with the above-mentioned diagnosis after failing extensive course of nonoperative care is here for the above- mentioned procedure. Description of Procedure Patient was met with identified informed consent obtained. Patient was then taken to the operative suite underwent an patient placed in a prone position on the Barrett table on top of the López frame. All bony prominences well-padded eyes inspected to ensure no external pressure placed upon the. This point the lumbar spine was prepped and draped in a sterile fashion. Sharp dissection with the assistance of Bovie cautery was performed down to and exposing the lamina and transverse processes of L4-L5 and sacral ala bilaterally. Obvious bilateral pars defect at L5-S1 was noted. A complete laminectomy of L5 L4 and partial laminectomy of L3 was performed including medial facetectomies and foraminotomies addressing severe spinal stenosis. Pedicle screws were then placed in L4-L5 and S1 levels bilaterally assistance of fluoroscopy and appropriately sized marisela contoured and placed. By way of a transforaminal approach on the right complete discectomy of L5-S1 was performed endplates curetted to subcortical bleeding bone and an 11 x 26 mm peek cage filled with osteo-bone graft tapped in position. Then proceeded L4-[address] of a transforaminal portion of right a complete discectomy performed endplates curetted to subcortical being bone and a 12 x 26 mm peek cage filled with osteo- bone graft tapped in position. The rods were then locked in final position bilaterally. The transverse processes of L4-L5 sacral ala burred to subcortical bleeding bone. Infuse collagen sponge master graft local autograft was placed in the posterior gutters. 15 round MARIA VICTORIA drain inserted. Incision was then closed with 1 Vicryl in the fascia 2-0 Vicryl subcutaneously and 4 Monocryl for final skin closure. Steri-Strip sterile dressings placed. Patient waken taken PACU stable condition. Please note spinal cord monitoring was utilized that the procedure no changes noted. Lastly Daija Jansen was present at the entire procedure involved the patient positioning complex portions of the surgery and final skin closure. I attest to the content of the Intraoperative Record and any orders documented therein. Any exceptions are noted below.
--- NOTE | 2019-11-22 16:47 | Fluoroscopy Report ---
FL lumbar spine 2-3V CLINICAL HISTORY: L4-S1 DECOMPRESSION/FUSION/INTERBODY COMPARISON STUDY: Lumbar spine MRI September 15, 2019. FLUOROSCOPY TIME: 19 seconds. FLUOROSCOPIC IMAGES: 2 FINDINGS: These images demonstrate L4-L5 and L5-S1 discectomies with interbody spacer placement. Ther e is a posterior decompression. There are bilateral pedicle screws at the L4, L5 and S1 levels. There are interconnecting rods. Hardware is intact. Abdominal surgical clips are incidentally noted. IMPRESSION: Fluoroscopy provided for L4-L5 and L5-S1 discectomies with posterior decompression L4-S1 and bilateral pedicle screw fusion. ACT 112: Negative or not required by law. Electronically signed by: Willy Angelo M.D. 11/22/2019 4:45 PM
[2019-11-22] MEDS: fentaNYL citrate 100 MCG/2 ML VIAL IV PRN ×4 (17:02→17:17)
--- NOTE | 2019-11-22 17:28 | Anesthesiology Progress Note ---
Date of Service November 22, 2019 Anesthesia Post Procedure Vital Signs Vital Signs: Temp Pulse Pulse Resp BP Pulse Ox 11/22/19 17:20 36.6 C 72 18 142/91 H 97 11/22/19 17:10 73 13 142/97 H 99 11/22/19 16:52 36.4 C L 66 139/77 100 11/22/19 16:43 77 23 150/89 H 99 11/22/19 10:05 37.2 C 60 18 162/87 H 95 Transfer of Care Handoff Completed per policy Notes Mental Status: alert / awake / arousable and participated in evaluation Patient Amnestic to Procedure: Yes Nausea / Vomiting: adequately controlled Pain: adequately controlled Airway Patency, RR, SpO2: stable & adequate BP & HR: stable & adequate Hydration State: stable & adequate Anesthetic Complications: no major complications apparent and Pt Satisfied with anesthetic care
[2019-11-22] MEDS ORDERED: HALOBETASOL PROPIONATE TOP PRN (17:50)
[2019-11-22] MEDS ORDERED: METOCLOPRAMIDE HCL INJ 5 MG/ML 2 ML VIAL IV PRN (17:50)
[2019-11-22] MEDS ORDERED: NALOXONE HCL 0.4 MG/1 ML VIAL/CARP IV PRN (17:50)
[2019-11-22] MEDS ORDERED: FAMOTIDINE 20 MG TAB PO PRN (17:50)
[2019-11-22] MEDS ORDERED: MAGNESIUM HYDROXIDE SUSP 30 ML UDC PO PRN (17:50)
[2019-11-22] MEDS ORDERED: LORazepam 0.5 MG/1 ML VIAL IV PRN (17:50)
[2019-11-22] MEDS ORDERED: DO NOT ADMINISTER PNEUMOCOCCAL VACCINE PRN (17:50)
[2019-11-22] MEDS ORDERED: FEXOFENADINE 60 MG TAB PO PRN (17:50)
[2019-11-22] MEDS ORDERED: DO NOT ADMINISTER FLU VACCINE PRN (17:50)
[2019-11-22] MEDS ORDERED: SOD PHOSPHATE/SOD BIPHOSPHATE ENEMA 132 ML BTL PR PRN (17:50)
[2019-11-22] MEDS ORDERED: ACETAMINOPHEN 1,000 MG/100 ML VIAL IV PRN (17:50)
[2019-11-22] MEDS ORDERED: PROMETHAZINE HCL 12.5 MG in SODIUM CHLORIDE 0.9% 50 ML IV PRN (17:50)
[2019-11-22] MEDS ORDERED: ONDANSETRON 4 MG OD TAB PO PRN (17:50)
[2019-11-22] MEDS ORDERED: bisacodyL 10 MG SUPP PR PRN (17:50)
[2019-11-22] MEDS ORDERED: LACTATED RINGER'S 1,000 ML IV SCH (17:50)
[2019-11-22] MEDS ORDERED: ACETAMINOPHEN 500 MG TAB PO PRN (17:50)
[2019-11-22] MEDS ORDERED: LORazepam 0.5 MG TAB PO PRN (17:50)
[2019-11-22] MEDS ORDERED: HYDROmorphone INJ 0.5 MG/0.5 ML SYR IV PRN (17:50)
[2019-11-22] MEDS ORDERED: ZOLPIDEM TARTRATE 5 MG TAB PO PRN (17:50)
[2019-11-22] MEDS ORDERED: ALUMINUM/MAGNESIUM SUSP 30 ML UDC PO PRN (17:50)
[2019-11-22] MEDS: OXYCODONE HCL IR 5 MG TAB (IMMEDIATE RELEASE) PO PRN (18:13)
--- NOTE | 2019-11-22 18:38 | Hospitalist Consultation ---
Date of Consultation November 22, 2019 Assessment & Plan (1) Neurogenic claudication due to lumbar spinal stenosis: S/p lumbar decompression L3-4, L4-5, and L5-S1 and fusion L4-L5 & L5-S1 on 11/[address] Montague. - EBL was 150 mL per operative report. At risk for expected, post-operative acut e blood loss anemia, not a complication of care. - Will follow hemoglobin and offer transfusion or IV iron if needed. - Post-operative care per primary team (2) Depression: Depression/anxiety. - On bupropion, buspirone, lamotrigine, mirtazapine, and lorazepam at home - Continue home regimen: Patient would like to bring home supply tomorrow to save money; will verify meds with pharmacy. (3) Tran's esophagus: Last EGD in 2015. - Continue home omeprazole when brings it in. (4) Obstructive sleep apnea: Per notes, does not use his home CPAP. - Monitor O2, but no other inpatient needs (5) DVT prophylaxis: SCDs - Per primary team History of Present Illness Attending Physician: Ace Montague, DO History of Present Illness 64yo M w/ hx of anxiety and Tran's esophagus who presents as a routine consult after lumbar decompression L3-4, L4-5, and L5-S1 and fusion L4-L5 & L5- S1. Patient had been having increasing neurologic claudication refractory to medical therapy. He underwent surgery without any complications and at present feels well with just mild ache in his back. Allergies Allergy/AdvReac Type Severity Reaction Status Date / Time No Known Allergies Allergy Verified 11/22/19 09:57 Home Medications Home Medications Medication Instructions Recorded Confirmed Type bupropion HCl 150 mg 24 hr tablet, 450 mg PO QAM #90 tab 10/13/18 11/22/19 History extended release buspirone 10 mg tablet 10 mg PO BID #60 tab 10/13/18 11/22/19 History lamotrigine 150 mg tablet 150 mg PO HS #30 tab 10/13/18 11/22/19 History lorazepam 0.5 mg tablet 0.5 mg PO DAILY PRN tab 10/22/18 11/22/19 History zolpidem 5 mg tablet 5 mg PO ONCE PRN tab 10/22/18 11/22/19 History sildenafil (pulm.hypertension) 20 20 mg PO DAILY PRN #10 tab 10/25/19 11/22/19 Rx mg tablet mirtazapine [Remeron] 15 mg PO HS 11/09/19 11/22/19 History omeprazole 20 mg PO QAM 11/09/19 11/22/19 History fexofenadine [Mala Allergy] 10 mg PO DAILY PRN 11/22/19 11/22/19 History halobetasol propionate 1 appln TOP DAILY PRN 11/22/19 11/22/19 History Patient History Medical History Anxiety Tran's esophagus Depression Diverticulosis Esophageal reflux Hearing loss no hearing aids History of testicular cancer age 23 -- chemo Obstructive sleep apnea Has a CPAP, does not use it. Peripheral neuropathy Surgical History H/O esophagogastroduodenoscopy History of dental surgery implant History of orchiectomy Hx of colonoscopy Hx of laceration of skin left ring finger - accident with saw Family History Unknown Diabetes Cancer Mother Hypotension Anxiety Father Depression Pancreatic cancer COPD (chronic obstructive pulmonary disease) Deafness Grandmother Diabetes Uncle Colon cancer Grandfather Diabetes Uncle Cancer Denies family history of Ovarian cancer Prostate cancer Myocardial infarction Breast cancer Social History Smoking Status: Never smoker Second Hand Exposure: No; Do You Dip or Chew Tobacco: No; Tobacco Cessation Education Requested by Patient: No Hx Alcohol Use: Yes Hx Substance Use: No Preferred Language: Syriac Communication Ability: Effective Visual Impairment: No Limitations Hearing Ability: Hard of Hearing Head Of Marketing Analytics Required: No Beliefs That Will Affect Care: None marital status: Current Living Situation: Family current occupational status: employed Other Information That Helps Us Care for You: No Feels Safe at Home: Yes Safety Concerns: Feels Safe At This Time Childhood Exposure to Second-Hand Smoke: Yes Dental Care, Regularly: Yes Physical Activity Frequency: Daily Seatbelt Use: always Sunscreen Use: Yes Review of Systems Review of Systems: All systems reviewed & are unremarkable except as noted in HPI & below Physical Exam Constitutional: WD/WN, vitals as above Eyes: EOM intact bilaterally; no conjunctival abnormality ENMT: external ear and nose normal, oropharynx normal Neck: trachea midline, no thyromegaly normal visual inspection Respiratory: normal respiratory effort, lungs clear to auscultation no respiratory distress Cardiovascular: RRR, no murmur, no edema Gastrointestinal (Abdomen): Inspection/Auscultation: abdomen normal to inspection; abdomen not distended Musculoskeletal: no cyanosis or clubbing, extremities motor strength 5/5 Skin: no rashes, warm and dry Neurologic: moves all extremities and awake Psychiatric: Orientation: alert, oriented to person and cooperative Results & Data Results & Data ([facility]) Vital Signs (Past 12 Hours) Vital Signs Temp Pulse Pulse Resp BP Pulse Ox 11/22/19 17:20 36.6 C 72 18 142/91 H 97 11/22/19 17:10 73 13 142/97 H 99 11/22/19 16:52 36.4 C L 66 139/77 100 11/22/19 16:43 77 23 150/89 H 99 11/22/19 10:05 37.2 C 60 18 162/87 H 95 PG Care Time/CCT Total # of Minutes Spent Total Time Spent with Patient: Total time spent is greater than 50% in coordination of care (as documented) at patient's floor/unit and/or counseling patient: Coding Level of Care Code 19483 Inpt Consult Level 3 Diagnoses Neurogenic claudication due to lumbar spinal stenosis M48.062 Depression F32.9 Tran's esophagus K22.70 Obstructive sleep apnea G47.33 DVT prophylaxis Z29.9
[2019-11-22] MEDS: KETOROLAC 30 MG/ML VIAL IV SCH (19:16)
[2019-11-22] MEDS ORDERED: MIRTAZAPINE TAB 15 MG TAB PO SCH (21:00)
[2019-11-22] MEDS ORDERED: lamoTRIgine 100 MG TAB PO SCH (21:00)
[2019-11-22] MEDS: DOCUSATE SODIUM/SENNA 50/8.6MG TAB PO SCH (21:25)
[2019-11-22] MEDS: CEFAZOLIN 2000MG 2,000 MG/15 ML SYR IV SCH (21:26)
[2019-11-23] MEDS: KETOROLAC 30 MG/ML VIAL IV SCH ×3 (01:30→12:40)
[2019-11-23] MEDS: POLYETHYLENE (MIRALAX) 17 GM PACK PO SCH ×3 (05:08→17:50)
[2019-11-23] MEDS: TRAMADOL HCL 50 MG TABLET PO PRN ×2 (05:12→05:18)
[2019-11-23] MEDS: CEFAZOLIN 2000MG 2,000 MG/15 ML SYR IV SCH (05:18)
[2019-11-23 06:10] LABS: Basophils # (auto) 0.01 K/uL (0-0.2); Basophils % (auto) 0.1 %; Eosinophils # (auto) 0.01 K/uL (0-0.5); Eosinophils % (auto) 0.1 %; Hematocrit (blood only) 32.1 % (42-52); Hemoglobin 11.1 g/dL (14.0-18.0); Immature Granulocytes # (auto) 0.03 K/uL (0.00-0.02); Immature Granulocytes % (auto) 0.3 %; Lymphocytes # (auto) 0.91 K/uL (1.2-3.4); Lymphocytes % (auto) 7.9 %; Mean Corpuscular Hemoglobin 29.2 pg (25-34); Mean Corpuscular Hgb Conc 34.6 g/dL (32-36); Mean Corpuscular Volume 84.5 fL (80-100); Mean Platelet Volume 9.9 fL (7.4-10.4); Monocytes # (auto) 0.94 K/uL (0.11-0.59); Monocytes % (auto) 8.2 %; Neutrophils # (auto) 9.62 K/uL (1.4-6.5); Neutrophils % (auto) 83.4 %; Platelet Count 268 K/uL (130-400); RDW Coefficient of Variation 12.7 % (11.5-14.5); RDW Standard Deviation 38.9 fL (36.4-46.3); White Blood Count 11.52 K/uL (4.8-10.8)
[2019-11-23 06:45] LABS: Calcium 7.6 mg/dl (8.5-10.1); Creatinine Clr Calc Pharmacy 92.7 ml/min; Est GFR (African American) 106.7; Est GFR (Non-African American) 92.1; Potassium 4.5 mmol/L (3.5-5.1)
--- NOTE | 2019-11-23 08:21 | Orthopedic Progress Note ---
Date of Service November 23, 2019 Assessment & Plan (1) Neurogenic claudication due to lumbar spinal stenosis: Admission and Anticipated Discharge Date Admission Date: November 22, 2019 This time we will continue physical therapy advance his bowel regiment monitor h is MARIA VICTORIA output hopefully discharge home in the next few days. Subjective Back pain controlled leg pain improved. Physical Exam Physical Exam: Patient is good strength testing appears comfortable. Results & Data ([facility]) Vital Signs (Past 12 Hours) Vital Signs Temp Pulse Resp BP Pulse Ox 11/23/19 07:01 36.6 C 68 18 144/79 H 97 11/23/19 03:44 36.8 C 67 20 138/70 96 11/22/19 23:20 36.7 C 79 18 151/88 H 98 11/22/19 20:46 36.5 C 71 14 149/80 H 96
[2019-11-23] MEDS: DEXAMETHASONE SOD PHOSPHATE 8 MG in SYRINGE 0 ML IV SCH (08:45)
[2019-11-23] MEDS ORDERED: BuPROPion XL 150 MG TABCR PO SCH (09:00)
[2019-11-23] MEDS ORDERED: PANTOprazole 40 MG TAB PO SCH (09:00)
[2019-11-23] MEDS ORDERED: Nursing to Pharmacy Communication SCH (15:45)
--- NOTE | 2019-11-23 16:23 | Communication Note ---
Date of Service: November 23, 2019 Patient doing well today. No real concerns. Plan for discharge tomorrow. Good from medical standpoint for discharge. Given medical stability, Hospital Medicine team will sign off. Please re-consult with any questions or concerns. Thank you for letting us assist in the care of this patient!
[2019-11-23] MEDS: DOCUSATE SODIUM/SENNA 50/8.6MG TAB PO SCH (20:41)
[2019-11-23] MEDS ORDERED: MIRTAZAPINE TAB 15 MG TAB PO SCH (21:00)
[2019-11-23] MEDS ORDERED: LAMOTRIGINE 200 MG PO SCH (21:00)
[2019-11-24] MEDS: POLYETHYLENE (MIRALAX) 17 GM PACK PO SCH ×3 (00:32→12:51)
[2019-11-24 06:24] LABS: Hematocrit (blood only) 29.5 % (42-52); Hemoglobin 10.2 g/dL (14.0-18.0); Mean Corpuscular Hemoglobin 29.3 pg (25-34); Mean Corpuscular Hgb Conc 34.6 g/dL (32-36); Mean Corpuscular Volume 84.8 fL (80-100); Mean Platelet Volume 10.4 fL (7.4-10.4); Platelet Count 267 K/uL (130-400); RDW Coefficient of Variation 12.9 % (11.5-14.5); RDW Standard Deviation 39.7 fL (36.4-46.3); Red Blood Count 3.48 M/uL (4.7-6.1); White Blood Count 8.02 K/uL (4.8-10.8)
[2019-11-24 06:57] LABS: BUN Creatinine Ratio 17.2 (10-20); Calcium 8.7 mg/dl (8.5-10.1); Creatinine Clr Calc Pharmacy 89.6 ml/min; Est GFR (African American) 104.3; Magnesium 2.3 mg/dl (1.8-2.4); Potassium 4.1 mmol/L (3.5-5.1)
[2019-11-24] MEDS: DEXAMETHASONE SOD PHOSPHATE 8 MG in SYRINGE 0 ML IV SCH (08:06)
[2019-11-24] MEDS: OXYCODONE HCL IR 5 MG TAB (IMMEDIATE RELEASE) PO PRN ×2 (08:06→12:51)
[2019-11-24] MEDS ORDERED: BuPROPion XL 150 MG TABCR PO SCH (09:00)
[2019-11-24] MEDS ORDERED: OMEPRAZOLE 20 MG CAPCR PO SCH (09:00)
--- NOTE | 2019-11-24 14:31 | Discharge Summary ---
Date of Service November 24, 2019 Admission HPI Per Admitting Provider This is a 62-year-old male who presents with persistent back and leg pain after failing extensive course of nonoperative care is here for surgical intervention. Principal Diagnosis Lumbar spinal stenosis with neurogenic claudication Discharge Data Allergies Allergy/AdvReac Type Severity Reaction Status Date / Time No Known Allergies Allergy Verified 11/22/19 09:57 Consultations 11/22/19 17:50 Consult Case Management - Discharge Planning Routine Consult Hospitalist Routine Procedures Performed Operation Date: 11/22/19 10:45 Actual Procedures p L4-S1 Decompression Fusion, Application of Bone Morphogenetic Protein, Insertion of Interbody Cage, Spinal Cord Monitoring(Not Applicable) - Ace Montague DO Ordered Studies 11/22/19 12:05 FL fluoroscopy <1hr Routine FL lumbar spine 2-3V Routine Hospital Course (1) Neurogenic claudication due to lumbar spinal stenosis: Patient underwent lumbar decompression fusion tolerated so was taken to orthopedic floor postoperatively. Patient was up and ambulating the next day. Pain well controlled. Leg symptoms improved. On postop day #2 MARIA VICTORIA drain decreasing probably. Excellent strength testing. Ambulating without difficulty. Subsequently discharged home. Discharge orders and instructions were on the chart for further review. Total Time Total Time Spent Total Time Spent (In Minutes): 20 minutes Discharge Plan Discharge Items Patient Disposition: Home - Self-Care Reason For Visit: Spinal Stenosis, Lumbar Region with Neurogenic Cla Discharge Diagnosis: Lumbar spinal stenosis with neurogenic claudication and spondylolisthesis L5-S1. Activity: As commented below Non-emergency contact: Primary Care Provider Call non-emergency contact if: you have any medication questions Follow-up/Referrals: ProKeshav MD [Primary Care Provider] - Diet: Regular Addtl Attending Provider Instructions: ACTIVITY RECOMMENDATIONS: SELF CARE INSTRUCTIONS AFTER THORACIC/LUMBAR FUSIONS 1. You may walk to your tolerance. It is good exercise for your legs and back. Expect some back and intermittent leg aches and pains. 2. You may perform "counter-top" level activities (make a sandwich, mk with a project, etc.). 3. No bending or lifting of more than 10 pounds or back twisting of any nature (roll like a log when turning in bed). 4. You may ride in a car for 20-30 minutes at a time. No driving until after your first visit with your doctor. 5. Frequent changes of position and restricting sitting to 30 minutes at a time will help limit the amount of back spasms and stiffness you may experience. 6. You may discontinue the use of ambulatory aids (cane, crutches, etc.) once your strength and confidence allow. 7. You may electronic train control technician the shower and let water strike your incision when you arrive home at least once daily. Do not take a tub bath, sit in a hot tub or go into a swimming pool until after your first recheck in the office. SPECIAL CARE INSTRUCTIONS: VERY IMPORTANT TO READ AND REVIEW A. Your surgical incision has been closed with a cosmetic suture under the skin that will dissolve in about 6 weeks. In 14 days, you can use a pair of clean scissors and cut the suture that is left outside of the skin at the ends of your incision. 1. The small skin tapes can be removed 7 days after surgery if they have not fallen off by that point. 2. You may keep the wound open to air as much as possible to promote healing after post-op day number 5 unless told otherwise by your doctor. 3. If you think the wound looks like it is becoming infected (redness or worsening drainage) and/or you are experiencing fever, chill or worsening back pain and muscle spasms, contact the office so that we may evaluate you as soon as possible. B. Complications are uncommon, but please contact us if you have any signs or symptoms of: 1. wound infection (fever higher than 102.5 degrees F, redness, separation of wound, drainage, or increasing pain from the incision) 2. blood clots in legs (pain, swelling, redness and warmth in legs) 3. urinary tract infection (fever higher than 102.5 degrees F, burning upon urination or increased frequency of urination) 4. nerve problems (inability to walk on your toes or heels, numbness, loss of bowel or bladder control) 5. any other symptoms that concern you C. Please call the office at if you have any concerns or questions about your operation or recovery. D. No smoking! Smoking drastically decreases the chance of a solid fusion. E. Do not take any anti-inflammatory medications (Indocin, Advil, Motrin, Aspirin, Naprosyn, etc.) as these may inhibit the chance of a solid fusion. Tylenol is okay to take for pain. MANAGING PAIN AFTER SPINAL SURGERY 1. Narcotic medication is intended for short-term use and will be provided for surgical pain. Surgical pain usually lasts for a period of 4-6 weeks. Narcotic medication includes Percocet, Vicodin, Darvocet, Tylenol #3 or Lortab. 2. Longer-term pain is more appropriately treated with non-narcotic medication such as Tylenol ES. 3. Muscle spasm is not appropriately treated with narcotics. Muscle relaxers such as Soma, Flexeril or Skelaxin can be used along with Tylenol ES. 4. Remember that we all live with some "aches and pains". This is not unusual or uncommon after an injury or as we get older. a. Back pain is expected and may include muscle spasms for 4 to 6 weeks after surgery. The pain should gradually improve. If the pain worsens for no apparent reason, please contact the office. b. Intermittent leg pain may also be experienced and should not be concerned about unless it worsens for no apparent reason. If so, please contact the office. 5. We will provide appropriate medication within the normal guidelines of their prescribed use. We will also be very cautious and aware of potential abuse and extended duration of patients' medication needs. a. Pain medications are for your comfort and to assist with sleep and rest so that the tissue can heal. They are not provided in order to return to normal activity and should not be used through the day. To do so or worsening pain at night can result from ongoing tissue damage and development of tolerance to the prescribed medicine. 6. Please allow 2-3 days to process refills. Prescriptions will not be mailed but must be picked up at the office. FOLLOW UP VISIT: Keep your scheduled follow-up appointment. Any questions, please call the office at . Pending Studies at Discharge: No Stand-Alone Forms: [facility], Opioid Pain Management, Smoking Cessation Medications and DC Order Prescriptions: New tramadol 50 mg tablet 50 mg PO Q6H PRN (Reason: pain, moderate) Qty: 20 RF: 0 oxycodone 5 mg tablet 5 mg PO Q6H PRN (Reason: pain, severe) Qty: 20 RF: 0 Continued buspirone 10 mg tablet 10 mg PO BID Qty: 60 RF: 0 bupropion HCl [Wellbutrin XL] 150 mg tablet extended release 24 hr 450 mg PO QAM Qty: 90 RF: 0 lamotrigine [Lamictal] 150 mg tablet 150 mg PO HS Qty: 30 RF: 0 lorazepam 0.5 mg tablet 0.5 mg PO DAILY PRN (Reason: Anxiety) RF: 0 zolpidem [Ambien] 5 mg tablet 5 mg PO ONCE PRN (Reason: Insomnia) RF: 0 sildenafil (pulm.hypertension) 20 mg tablet 20 mg PO DAILY PRN (Reason: sexual activity) Qty: 10 RF: 0 mirtazapine [Remeron] 15 mg Tablet 15 mg PO HS RF: 0 omeprazole 20 mg Capsule,Delayed Release(Dr/Ec) 20 mg PO QAM RF: 0 halobetasol propionate 0.05 % cream 1 appln TOP DAILY PRN (Reason: Rash) RF: 0 fexofenadine [Mala Allergy] 60 mg Tablet 10 mg PO DAILY PRN (Reason: Allergic Symptoms) RF: 0 Discharge Orders: Discharge Order (Routine); Ordered 11/24/19 Ordered By: Ace Pierce/Other Patient Handouts: DVT Post Op Prevention, Preventing Deep Vein Thrombosis Admission Data Admit Date/Time: 11/22/19 16:48 Attending Provider: Ace Montague Admit Provider: Ace Montague Primary Care Provider: Keshav Cardozo Other Providers: Chace Kauffman Other Interventions: Discharge Summary Assessment (RN) Last Done: 11/24/19 10:06
== END 2019-11-24 15:23 | disposition home or self-care (01) | DRG 455 ==
LOC: ASU 09:14 → 3E 16:48

== ENCOUNTER 2023-02-25 07:59 | Inpatient (IN) ==
--- NOTE | 2023-02-03 15:06 | PAT Medication Instructions ---
Medication Instructions Date of Service February 03, 2023 Home Medications Medication Instructions Recorded sildenafil 50 mg tablet 50 mg PO DAILY PRN sexual activity 09/25/22 #14 tabs lorazepam 0.5 mg tablet 0.5 mg PO DAILY PRN Anxiety halobetasol propionate 0.05 % topical cream 1 appln topical DAILY PRN Rash duloxetine 60 mg capsule,delayed release (Cymbalta) 60 mg PO BID buspirone 30 mg tablet 15 mg PO BID sildenafil 50 mg tablet 50 mg PO DAILY PRN sexual activity lamotrigine 100 mg tablet 100 mg PO HS pantoprazole 40 mg tablet,delayed release 40 mg PO QAM STOP taking 24 hours before surgery halobetasol propionate 0.05 % topical cream 1 appln topical DAILY PRN Rash sildenafil 50 mg tablet 50 mg PO DAILY PRN sexual activity Take morning of surgery With a small sip of water, OTHERWISE NOTHING TO EAT OR DRINK AFTER MIDNIGHT: lorazepam 0.5 mg tablet 0.5 mg PO DAILY PRN Anxiety (if needed) duloxetine 60 mg capsule,delayed release (Cymbalta) 60 mg PO BID buspirone 30 mg tablet 15 mg PO BID pantoprazole 40 mg tablet,delayed release 40 mg PO QAM Take evening before surgery lorazepam 0.5 mg tablet 0.5 mg PO DAILY PRN Anxiety (if needed) duloxetine 60 mg capsule,delayed release (Cymbalta) 60 mg PO BID buspirone 30 mg tablet 15 mg PO BID lamotrigine 100 mg tablet 100 mg PO HS Other Notes If you have any questions please call us at [phone] or [phone] or [phone] or [phone]
--- NOTE | 2023-02-11 12:02 | Anesthesiology Consultation ---
Date of Service February 11, 2023 Assessment & Plan (1) Encounter for pre-operative examination: Plan - pt has endoscopy 02/12/23. - awaiting PCP pre-operative evaluation 02/13/23 [place]. - anxiety: patient is requesting pre-procedural anxiety medication when here for surgery. Marked for OR. He prefers to see how he is feeling coming in vs taking Rx prn lorazepam. Chart Review Chart Review: Pending: Refer to Additional Notes / Consult section and Patient seen in Pre Admission Testing Teaching & Discussion Pre-Anesthesia Teaching/Discussion Notes: Instructed NPO after midnight before surgery, except medications with 15 cc of water. Medication instructions provided according to the PAT guidelines. History Surgery Operation Date: 02/25/23 09:35 Proposed Procedures p L2-L4 Decompression and Fusion, Possible L1-L2, L4-S1 Hardware Removal - Ace Montague DO Height/Weight Height: 5 ft 10 in Weight: 80.2 kg Allergies Allergy/AdvReac Type Severity Reaction Status Date / Time No Known Allergies Allergy Verified 02/03/23 13:34 Medications Home Medications Medication Instructions Recorded Confirmed Last Taken lorazepam 0.5 mg tablet 0.5 mg PO DAILY PRN Anxiety 10/22/18 02/03/23 Unknown halobetasol propionate 0.05 % 1 appln topical DAILY PRN Rash 11/22/19 02/03/23 11/21/19 12:00 topical cream duloxetine 60 mg capsule,delayed 60 mg PO BID 12/20/20 02/03/23 10/24/22 release (Cymbalta) buspirone 30 mg tablet 15 mg PO BID 11/30/21 02/03/23 10/24/22 sildenafil 50 mg tablet 50 mg PO DAILY PRN sexual activity 09/25/22 02/03/23 Unknown #14 tabs lamotrigine 100 mg tablet 100 mg PO HS 10/24/22 02/03/23 Unknown pantoprazole 40 mg tablet,delayed 40 mg PO QAM 02/03/23 02/03/23 Unknown release bupropion HCl 150 mg tablet,12 hr 150 mg PO BID 02/11/23 02/11/23 Unknown sustained-release (Wellbutrin SR) Past Medical History Medical History (Updated 02/12/23 @ 09:03 by Alma Gonzalez PA-C) Seasonal allergies Elevated blood pressure reading without diagnosis of hypertension Chronic back pain History of COVID-19 03/29/2021-myalgias, chills, productive cough-recovered at home- symptoms resolved Anxiety and depression stable per pt Chronic anemia Hgb 12-13 over the past year Neurogenic claudication due to lumbar spinal stenosis Right foot drop Xerostomia Peripheral neuropathy right hand Obstructive sleep apnea CPAP-nightly History of testicular cancer Age 23 s/p chemo and orchiectomy, radical lymph node excision Hearing loss No hearing aids Esophageal reflux controlled, stable per pt Tran's esophagus Patient denies h/o stroke, seizures, heart attack, heart failure, DM, blood clots/DVTs or blood transfusions. Exercise / Class Metabolic Activity II 4-5 Yardwork/Stairs/Walk up hill (denies chest discomfort or shortness of breath with 1 FOS) Past Family History Family History Unknown Cancer Mother Anxiety Hypotension Father Pancreatic cancer Hearing loss Deafness Depression COPD (chronic obstructive pulmonary disease) Grandmother No problems noted. Uncle Colon cancer Grandfather No problems noted. Uncle Cancer Grandmother (Paternal) Family history of diabetes mellitus Other Diabetes No family history of adverse response to anesthesia No family history of bleeding disorder Denies family history of Ovarian cancer Prostate cancer Myocardial infarction Breast cancer Past Surgical History Surgical History History of surgery left hand after table saw accident History of reverse total replacement of right shoulder joint History of back surgery back procedure, Discseel, done in [facility] with Dr Jeff He. 05/08/21. S/P lumbar spine operation L4-S1 decompression/fusion (11/22/19): Grade view 1, MAC#3, ETT 7.5 at [facility]. No issues per anesthesia postop progress note. S/P arthroscopy of right shoulder rotator cuff repair Hx of colonoscopy Hx of laceration of skin Left ring finger (accident with saw) H/O esophagogastroduodenoscopy History of orchiectomy History of dental surgery Implant Past Anesthesia History No Hx of Anesthesia Complications and No Family Hx of Anesthesia Complications History of PONV No Hx of PONV and No Hx of Motion Sickness Social History Smoking Status: Never smoker Do You Dip or Chew Tobacco: No Hx Alcohol Use: Yes Alcohol type: hard liquor alcohol intake frequency: a few times a week Hx Substance Use: No substance use type: does not use Review of Systems Patient denies chest pain, shortness of breath, dyspnea on exertion, fever, chills, cough, wheezing, or palpitations. Physical Exam Vital Signs Vitals BP 176/89 right arm sitting automatic reading, 172/87 right arm sitting manual (Pt notes significant anxiety in clinical settings) P 57 TEMP 98.6 SP02 96% on RA RESP 18 Physical Patient resting comfortably in chair in no acute distress, alert and oriented, responding appropriately throughout visit Full cervical extension range of motion without pain TMD 3.5 finger breadths Mallampati Score 2 Dentition: implant-front lower and loose teeth lower front next to implant; denies chipped teeth, caps/crowns, or bridges Lungs: normal respiratory effort. Good air movement, clear throughout to auscultation, no adventitious breath sounds Cardiac: regular rate and rhythm, no murmurs noted Carotid arteries: negative bruit bilat Lab Results Anesthesia Preop Results Results Anesthesia Widget: WBC 4.28 K/ul (4.8-10.8) L 02/11/23 Hgb 12.5 g/dl (14.0-18.0) L 02/11/23 Hct 36.9 % (42.0-52.0) L 02/11/23 Plt 340 K/uL (130-400) 02/11/23 Na 135 mmol/L (136-145) L 02/11/23 K 4.1 mmol/L (3.5-5.1) 02/11/23 Cl 102 mmol/L (98-107) 02/11/23 CO2 27 mmol/L (21-32) 02/11/23 BUN 12 mg/dl (6-23) 02/11/23 Creat 0.89 mg/dl (0.6-1.4) 02/11/23 Glucose Level 101 mg/dl (70-99(Fasting)) H 02/11/23 PT 10.3 Seconds (9.0-12.0) 02/11/23 PTT 30.4 Seconds (21.0-31.0) 02/11/23 INR 0.9 (0.9-1.1) 02/11/23 Urine Color Yellow 02/11/23 Urine Appearance Clear (Clear) 02/11/23 Urine pH 6.5 (4.5-7.5) 02/11/23 Urine Specific Terrell 1.020 (1.000-1.030) 02/11/23 Urine Protein Negative (Negative) 02/11/23 Urine Glucose (UA) Negative (Negative) 02/11/23 Urine Ketones Negative (Negative) 02/11/23 Urine Blood Negative (Negative) 02/11/23 Urine Nitrite Negative (Negative) 02/11/23 Urine Bilirubin Negative (Negative) 02/11/23 Urine Urobilinogen Negative (Negative) 02/11/23 Urine Leukocyte Esterase Trace (Negative) H 02/11/23 Urine WBC (Auto) 1-5 /hpf (0-5) 02/11/23 Urine RBC (Auto) 0-4 /hpf (0-4) 02/11/23 Urine Hyaline Casts (Auto) 1-5 /lpf (0-5) 02/11/23 Urine Epithelial Cells (Auto) 0-5 /lpf (0-5) 02/11/23 Urine Bacteria (Auto) Negative (Negative) 02/11/23 Blood Type O Negative 02/11/23 Antibody Screen NEGATIVE 02/11/23 Testing Electrocardiogram Date: 10/24/22 NSR, rate 61 bpm Chest X-Ray Date: 10/24/22 *1view* 1. No active disease in the chest. 2. Nonobstructed abdominal bowel gas pattern. 3. Moderate to severe fecal retention in the right colon.
[~2023-02-25 07:59] MED LIST changes: -CEFAZOLIN 1000MG 1,000 MG/7.5 ML SYR IV SCH; +DEXAMETHASONE SOD INJ 4 MG/ML VIAL ONE; +GABAPENTIN 300 MG CAP PO SCH; -GABAPENTIN 600 MG DOSE PO SCH; +LIDOCAINE 2% 2 ML VIAL/AMP(20MG/ML) INFIL ONE; +LR 60ML/HR IV SCH; +MIDAZOLAM HCL 1 MG/ML 2ML VIAL ONE; +ONDANSETRON INJ 2 MG/ML 2 ML VIAL ONE; +PROPOFOL IV EMULSION 10 MG/ML 20 ML VIAL IV ONE; +ROCURONIUM BROMIDE 10 MG/ML 5 ML VIAL IV ONE; +SUGAMMADEX SODIUM 200 MG/2 ML VIAL IV ONE; +ceFAZolin 2000MG 2,000 MG/15 ML SYR IV SCH; +fentaNYL citrate PF 100 MCG/2 ML VIAL ONE
[2023-02-25] MEDS ORDERED: ONDANSETRON INJ 2 MG/ML 2 ML VIAL IV PRN ×2 (08:54→15:03)
[2023-02-25] MEDS ORDERED: PROMETHAZINE HCL 6.25 MG in SODIUM CHLORIDE 0.9% 50 ML IV PRN (08:54)
[2023-02-25] MEDS ORDERED: ATROPINE SULFATE 0.1 MG/ML 10ML SYR IV PRN (08:54)
[2023-02-25] MEDS ORDERED: ePHEDrine sulfate 50 MG/ML AMP IV PRN (08:54)
--- NOTE | 2023-02-25 09:20 | History & Physical Bridge Note ---
Date of Service February 25, 2023 History & Physical Bridge Note I have examined the patient, reviewed the History & Physical and in the interval since the performance of the History & Physical I have noted the following changes of clinical significance: no changes noted
--- NOTE | 2023-02-25 09:22 | History & Physical Report ---
Date of Service February 25, 2023 Assessment & Plan (1) Neurogenic claudication due to lumbar spinal stenosis: Plan: L2 L4 decompression fusion, possible L1-L2, L4-S1 hardware removal History of Present Illness Chief Complaint: Back and leg pain Primary Care Provider: Keshav Cardozo MD This is a 67-year-old male who presents with chronic persistent back and leg pain after failing since course of nonoperative care is here for surgical invention. Allergies Allergy/AdvReac Type Severity Reaction Status Date / Time No Known Allergies Allergy Verified 02/25/23 08:18 Home Medications Medication Instructions Recorded Confirmed Type lorazepam 0.5 mg tablet 0.5 mg PO DAILY PRN Anxiety 10/22/18 02/25/23 History halobetasol propionate 0.05 % 1 appln topical DAILY PRN Rash 11/22/19 02/25/23 History topical cream duloxetine 60 mg capsule,delayed 60 mg PO BID 12/20/20 02/25/23 History release (Cymbalta) buspirone 30 mg tablet 15 mg PO BID 11/30/21 02/25/23 History sildenafil 50 mg tablet 50 mg PO DAILY PRN sexual activity 09/25/22 02/25/23 Rx #14 tabs lamotrigine 100 mg tablet 100 mg PO HS 10/24/22 02/25/23 History pantoprazole 40 mg tablet,delayed 40 mg PO QAM 02/03/23 02/25/23 History release bupropion HCl 150 mg tablet,12 hr 150 mg PO BID 02/11/23 02/25/23 History sustained-release (Wellbutrin SR) Past Med/Surg History Medical History Seasonal allergies Elevated blood pressure reading without diagnosis of hypertension Chronic back pain History of COVID-19 Anxiety and depression Chronic anemia Neurogenic claudication due to lumbar spinal stenosis Right foot drop Xerostomia Peripheral neuropathy Obstructive sleep apnea History of testicular cancer Hearing loss Esophageal reflux Tran's esophagus Surgical History History of surgery History of reverse total replacement of right shoulder joint History of back surgery S/P lumbar spine operation S/P arthroscopy of right shoulder Hx of colonoscopy Hx of laceration of skin H/O esophagogastroduodenoscopy History of orchiectomy History of dental surgery Family History Unknown Cancer Mother Anxiety Hypotension Father Pancreatic cancer Hearing loss Deafness Depression COPD (chronic obstructive pulmonary disease) Grandmother No problems noted. Uncle Colon cancer Grandfather No problems noted. Uncle Cancer Grandmother (Paternal) Family history of diabetes mellitus Other Diabetes No family history of adverse response to anesthesia No family history of bleeding disorder Denies family history of Ovarian cancer Prostate cancer Myocardial infarction Breast cancer Social History Smoking Status: Never smoker Second Hand Exposure: Yes (hx as child); Do You Dip or Chew Tobacco: No; Tobacco Cessation Education Requested by Patient: No Hx Alcohol Use: Yes Alcohol type: hard liquor Hx Substance Use: No Preferred Language: Bruneian Communication Ability: Effective Visual Impairment: Limited Hearing Ability: Hard of Hearing Concrete Sculptor Required: No Beliefs That Will Affect Care: None marital status: Current Living Situation: Spouse current occupational status: employed Other Information That Helps Us Care for You: No Feels Safe at Home: Yes Safety Concerns: Feels Safe At This Time Childhood Exposure to Second-Hand Smoke: Yes Dental Care, Regularly: Yes Physical Activity Frequency: Daily Seatbelt Use: always Sunscreen Use: Yes Assistive Devices: Brace/Splint/Immobilizer, CPAP and Glasses Physical Exam Physical Exam: Patient is alert and oriented Heart regular rhythm Lungs clear Results & Data Results & Data Vital Signs (Past 12 Hours) Vital Signs Temp Pulse Resp BP Pulse Ox O2 Del Method 02/25/23 08:20 36.5 C 64 18 168/93 H 96 Room Air
[2023-02-25] MEDS ORDERED: ceFAZolin 330 MG/ML 1 GM VIAL ONE (09:29)
[2023-02-25] MEDS ORDERED: BUPIVACAINE/EPINEPHRINE 0.25% 1:200,000 30 ML VIAL ONE (09:29)
[2023-02-25] MEDS ORDERED: FLOSEAL HEMOSTATIC MATRIX 10ML TOP ONE (10:45)
[2023-02-25] MEDS ORDERED: GLYCOPYRROLATE 0.2 MG/ML VIAL ONE (10:51)
[2023-02-25] MEDS ORDERED: ePHEDrine sulfate 50 MG/5 ML SYR ONE (10:55)
--- NOTE | 2023-02-25 12:43 | Operative Report ---
Post Operative Report Pre & Post Diagnosis Operation Date: 02/25/23 09:35 Pre-Op Diagnosis: Spinal Stenosis, Lumbar Region with Neurogenic Claudication Post-Op Diagnosis: Spinal Stenosis, Lumbar Region with Neurogenic Claudication I identified the patient and participated in the time-out.: Yes Procedure Operation Date: 02/25/23 09:35 Actual Procedures #1 removal of instrumentation L4-S1. #2 exploration of fusion L4-S1. #3 lumbar decompression bilaterally facetectomies and foraminotomies L1-L2 L2-L3 L3-L4. #4 posterior spinal fusion L2-L4. #5 placed posterior segmental instrumentation L2-S1. #6 interbody fusion L2-L3 L3-L4 per #7 placement of spiral 9 x 26 mm at L2-L3 and 11 x 26 mm at L3-L4. #8 placement locally harvested morselized autograft posterior gutters. #9 placement I factor interbody space and infuse collagen sponge, mass graft in the posterior gutters L2-L5. Surgeon Ace Montague, Certified Personal Finance Counselor Daija Jansen Estimated Blood Loss 400 Findings Consistent with Post-Op Diagnosis Specimens None Indications This is a 67-year-old male who presents above-mentioned diagnosis after failing course of nonoperative care is here for surgical invention. Description of Procedure Patient was met with identified informed consent obtained. Patient was then taken to the operative suite underwent patient placed in a prone position on the Barrett table top of the López frame. All bony promises well-padded eyes inspected to ensure no external pressure placed upon him. This point the lumbar spine was prepped and draped in normal sterile fashion. Sharp dissection with the assistance of Bovie cautery to form down to and exposing the lamina and transverse processes of L2-L3 and the instrumentation L4-L5 and S1 levels bilaterally. Then proceeded with the hardware bilaterally explored the fusion mass noting it to be mature and intact. Informed complete laminectomy of L3 L2 partial laminectomy of L1 including bilateral medial facetectomies and foraminotomies addressing severe spinal stenosis. Pedicle screws were then placed in L2-L3-L4 and S1 levels bilaterally with assistance of fluoroscopy and appropriately sized marisela contoured and placed. By way of a transforaminal approach on the left complete discectomy of L3-L4 was performed endplates guarded to subcortical bleeding bone and 11 x 26 mm Spira cage with I factor tapped in position. Then proceeded to L2-L3 and again by way of a trans foraminal approach on the left complete discectomy performed endplates guarded to subcortical bleeding bone and a 9 x 26 mm Spira cage filled with I factor tapped in position. The rods were then locked in the final position bilateral ly. The transverse processes of L2-L3-L4 burred to subcortical and bone. Infuse collagen sponge combined master graft Was placed in the posterior gutters. 15 round MARIA VICTORIA drain inserted. The incision was then closed with 1 Vicryl fascia 2-0 Vicryl subcutaneously and 4 Monocryl for fascial closure. Steri-Strips sterile dressing placed. Patient waken taken to PACU in stable condition. Please note spinal cord monitoring was utilized at the procedure no changes noted. Lastly Daija Jansen was present at the entire surgery and all the patient positioning complex portion of the surgery and final skin closure. I attest to the content of the Intraoperative Record and any orders documented therein. Any exceptions are noted below.
[2023-02-25] MEDS ORDERED: fentaNYL citrate PF 100 MCG/2 ML VIAL ONE (12:45)
[2023-02-25] MEDS: fentaNYL citrate PF 100 MCG/2 ML VIAL IV PRN ×4 (13:14→13:29)
[2023-02-25] MEDS: HYDROmorphone INJ 2 MG/ML SYR/VIAL IV PRN ×2 (13:34→13:49)
--- NOTE | 2023-02-25 13:54 | Fluoroscopy Report ---
FL lumbar spine 2-3V CLINICAL HISTORY: L2-L4 DECOMPRESSION AND FUSION POSSIBLE L1-2/L4-S1 HW REMOVAL COMPARISON STUDY: Lumbar spine MRI 02/12/2021. FLUOROSCOPY TIME: 21 seconds FLUOROSCOPY IMAGES: 3 Ka,r: 13.4 mGy FINDINGS: Posterior decompression and fusion from L2 through S1 with pedicle screws and rods. Disc sp acers are noted at the L2-L3 and L3-L4 levels which are new compared to the prior study. Retroperiton eal surgical clips are noted. The hardware appears intact. IMPRESSION: Fluoroscopic assistance as above ACT 112: Negative or not required by law. Electronically signed by: Galo Kumar M.D. 02/25/2023 1:52 PM
--- NOTE | 2023-02-25 14:32 | Anesthesiology Progress Note ---
Date of Service February 25, 2023 Anesthesia Post Procedure Vital Signs Vital Signs: Temp Pulse Pulse Resp BP Pulse Ox O2 Del Method 02/25/23 14:20 60 17 104/60 97 Nasal Cannula 02/25/23 14:05 36.4 C L 56 L 12 99/58 L 94 Nasal Cannula 02/25/23 13:55 61 11 L 106/59 L 94 Nasal Cannula 02/25/23 13:45 60 18 121/66 99 Nasal Cannula 02/25/23 13:35 61 19 118/74 99 Nasal Cannula 02/25/23 13:25 60 16 138/79 99 Nasal Cannula 02/25/23 13:15 52 L 16 134/73 99 Oxymask 02/25/23 13:05 56 L 16 125/62 97 Oxymask 02/25/23 12:55 36.0 C L 75 14 135/68 95 Oxymask 02/25/23 08:20 36.5 C 64 18 168/93 H 96 Room Air O2 Flow Rate 02/25/23 14:20 2 02/25/23 14:05 2 02/25/23 13:55 2 02/25/23 13:45 2 02/25/23 13:35 2 02/25/23 13:25 2 02/25/23 13:15 4 02/25/23 13:05 6 02/25/23 12:55 6 02/25/23 08:20 Pain Intensity Lower Back: Pain Intensity: 5 Transfer of Care Handoff Completed per policy Notes Mental Status: alert / awake / arousable and participated in evaluation Patient Amnestic to Procedure: Yes Nausea / Vomiting: adequately controlled Pain: adequately controlled Airway Patency, RR, SpO2: stable & adequate BP & HR: stable & adequate Hydration State: stable & adequate Anesthetic Complications: no major complications apparent and Pt Satisfied with anesthetic care
[2023-02-25] MEDS ORDERED: hydrOXYzine HCl 25 MG TAB PO PRN (15:03)
[2023-02-25] MEDS ORDERED: METOCLOPRAMIDE HCL INJ 5 MG/ML 2 ML VIAL IV PRN (15:03)
[2023-02-25] MEDS ORDERED: MAGNESIUM HYDROXIDE SUSP 30 ML UDC PO PRN (15:03)
[2023-02-25] MEDS ORDERED: bisacodyL 10 MG SUPP PR PRN (15:03)
[2023-02-25] MEDS ORDERED: ACETAMINOPHEN 500 MG TAB PO PRN (15:03)
[2023-02-25] MEDS ORDERED: ALUMINUM/MAGNESIUM SUSP 30 ML UDC PO PRN (15:03)
[2023-02-25] MEDS ORDERED: LORazepam 0.5 MG in SYRINGE 0.25 ML IV PRN (15:03)
[2023-02-25] MEDS ORDERED: SOD PHOSPHATE/SOD BIPHOSPHATE ENEMA 132 ML BTL PR PRN (15:03)
[2023-02-25] MEDS ORDERED: HYDROmorphone INJ 1 MG/ML SYRINGE IV PRN (15:03)
[2023-02-25] MEDS ORDERED: ONDANSETRON 4 MG OD TAB PO PRN (15:03)
[2023-02-25] MEDS ORDERED: ACETAMINOPHEN 1,000 MG/100 ML VIAL IV PRN (15:03)
[2023-02-25] MEDS ORDERED: HYDROmorphone INJ 0.5 MG/0.5 ML SYR IV PRN (15:03)
[2023-02-25] MEDS ORDERED: LORazepam 0.5 MG TAB PO PRN (15:03)
[2023-02-25] MEDS ORDERED: DO NOT ADMINISTER FLU VACCINE PRN (15:03)
[2023-02-25] MEDS ORDERED: FAMOTIDINE 20 MG TAB PO PRN (15:03)
[2023-02-25] MEDS ORDERED: PROMETHAZINE HCL 12.5 MG in SODIUM CHLORIDE 0.9% 50 ML IV PRN (15:03)
[2023-02-25] MEDS ORDERED: NALOXONE HCL 0.4 MG/1 ML VIAL/CARP IV PRN (15:03)
[2023-02-25] MEDS ORDERED: DO NOT ADMINISTER PNEUMOCOCCAL VACCINE PRN (15:03)
[2023-02-25] MEDS ORDERED: diphenhydrAMINE Capsule 25 MG CAP PO PRN (15:03)
[2023-02-25] MEDS ORDERED: traMADol HCL 50 MG TABLET PO PRN (15:03)
[2023-02-25] MEDS: LACTATED RINGER'S 1,000 ML IV SCH (15:31)
--- NOTE | 2023-02-25 17:24 | Hospitalist Consultation ---
Date of Consultation February 25, 2023 Assessment & Plan (1) S/P lumbar spine operation: Perioperative antibiotics, pain control, DVT PPx, and IV fluids per the primary team Agree with a.m. CBC and BMP tomorrow, we will follow (2) Sensorineural hearing loss of both ears: (3) Depression: Continue bupropion, duloxetine, buspirone, lamotrigine (4) Esophageal reflux: Continue pantoprazole (5) Obstructive sleep apnea: Plan Agree with medical decision-making: Thank you for allowing us to participate in the care of this patient, please reach out with any questions or concerns History of Present Illness Reason for Consultation: Medical management Requesting Physician: Ace Montague DO Attending Physician: Ace Montague DO History of Present Illness Kayden is a 67-year-old male with PMH of lumbosacral radiculopathy, neurogenic claudication due to lumbar spinal stenosis Tran's esophagus, GERD, NARDA, mixed hearing loss, and depression. He presented for spinal surgery with Dr. Ace Montague DO at 0935 on 02/25/2023. Procedure: L2 L4 decompression fusion, L4- S1 hardware removal. Per operative report, EBL was 400 cc. Per review of patient's vitals, patient exhibited mild hypotension at 99/58 postop, which resolved; also mild bradycardia in the 50-59 bpm range. ROS: Patient endorses Patient denies Allergies Allergy/AdvReac Type Severity Reaction Status Date / Time No Known Allergies Allergy Verified 02/25/23 08:18 Home Medications Medication Instructions Recorded Confirmed Type lorazepam 0.5 mg tablet 0.5 mg PO DAILY PRN Anxiety 10/22/18 02/25/23 History halobetasol propionate 0.05 % 1 appln topical DAILY PRN Rash 11/22/19 02/25/23 History topical cream duloxetine 60 mg capsule,delayed 60 mg PO BID 12/20/20 02/25/23 History release (Cymbalta) buspirone 30 mg tablet 15 mg PO BID 11/30/21 02/25/23 History sildenafil 50 mg tablet 50 mg PO DAILY PRN sexual activity 09/25/22 02/25/23 Rx #14 tabs lamotrigine 100 mg tablet 100 mg PO HS 10/24/22 02/25/23 History pantoprazole 40 mg tablet,delayed 40 mg PO QAM 02/03/23 02/25/23 History release bupropion HCl 150 mg tablet,12 hr 150 mg PO BID 02/11/23 02/25/23 History sustained-release (Wellbutrin SR) Patient History Medical History Seasonal allergies Elevated blood pressure reading without diagnosis of hypertension Chronic back pain History of COVID-19 03/29/2021-myalgias, chills, productive cough-recovered at home- symptoms resolved Anxiety and depression stable per pt Chronic anemia Hgb 12-13 over the past year Neurogenic claudication due to lumbar spinal stenosis Right foot drop Xerostomia Peripheral neuropathy right hand Obstructive sleep apnea CPAP-nightly History of testicular cancer Age 23 s/p chemo and orchiectomy, radical lymph node excision Hearing loss No hearing aids Esophageal reflux controlled, stable per pt Tran's esophagus Surgical History (Updated 02/25/23 @ 17:23 by Galo Thakur PA-C) History of surgery left hand after table saw accident History of reverse total replacement of right shoulder joint History of back surgery back procedure, Discseel, done in [facility] with Dr Jeff He. 05/08/21. S/P lumbar spine operation L4-S1 decompression/fusion (11/22/19): Grade view 1, MAC#3, ETT 7.5 at [facility]. No issues per anesthesia postop progress note. S/P arthroscopy of right shoulder rotator cuff repair Hx of colonoscopy Hx of laceration of skin Left ring finger (accident with saw) H/O esophagogastroduodenoscopy History of orchiectomy History of dental surgery Implant Family History Unknown Cancer Mother Anxiety Hypotension Father Pancreatic cancer Hearing loss Deafness Depression COPD (chronic obstructive pulmonary disease) Grandmother No problems noted. Uncle Colon cancer Grandfather No problems noted. Uncle Cancer Grandmother (Paternal) Family history of diabetes mellitus Other Diabetes No family history of adverse response to anesthesia No family history of bleeding disorder Denies family history of Ovarian cancer Prostate cancer Myocardial infarction Breast cancer Social History Smoking Status: Never smoker Second Hand Exposure: Yes (hx as child); Do You Dip or Chew Tobacco: No; Tobacco Cessation Education Requested by Patient: No Hx Alcohol Use: Yes Alcohol type: hard liquor Hx Substance Use: No Preferred Language: Italian Communication Ability: Effective Visual Impairment: Limited Hearing Ability: Hard of Hearing Information Systems Operator Required: No Beliefs That Will Affect Care: None marital status: Current Living Situation: Spouse current occupational status: employed Other Information That Helps Us Care for You: No Feels Safe at Home: Yes Safety Concerns: Feels Safe At This Time Childhood Exposure to Second-Hand Smoke: Yes Dental Care, Regularly: Yes Physical Activity Frequency: Daily Seatbelt Use: always Sunscreen Use: Yes Assistive Devices: Brace/Splint/Immobilizer, CPAP and Glasses Review of Systems Review of Systems: See HPI above Physical Exam Physical Exam: General: no acute distress; non-toxic appearing; well-nourished; cooperative HEENT: normocephalic, atraumatic; no scleral icterus; PERRLA w/ EOMs intact; moist mucus membrane; vision and hearing grossly intact Neck: supple; no JVD; no lymphadenopathy; trachea midline Skin: warm, dry without signs of tenting; no cyanosis; no rashes, bruising, lesions, or erythema noted CV: chest wall NTP; RRR; S1/S2 normal; no murmurs/rubs/gallops; pulses intact and symmetric at radial, DP, and PT Lungs: no acute respiratory distress; symmetrical chest wall expansion; clear breath sounds across all lung burk w/o adventitious sounds; no wheezing ABD: Soft, NTP; BS present; no rebound/guarding; no ascites; no distention; negative CVA tenderness MSK: no tics or fasciculations; no edema noted in the LEs b/l Neuro: A&Ox3; normal mood and affect; fluent speech; CN2-12 intact; no focal deficits; sensation grossly intact Results & Data Results & Data Vital Signs (Past 12 Hours) Vital Signs Temp Pulse Pulse Resp BP Pulse Ox O2 Del Method 02/25/23 17:04 36.6 C 77 16 119/60 97 Room Air 02/25/23 16:01 77 16 145/85 H 98 Nasal Cannula 02/25/23 15:35 69 16 110/63 98 Nasal Cannula 02/25/23 14:50 75 19 101/76 94 Nasal Cannula 02/25/23 14:35 65 12 101/60 92 Nasal Cannula 02/25/23 14:20 60 17 104/60 97 Nasal Cannula 02/25/23 14:05 36.4 C L 56 L 12 99/58 L 94 Nasal Cannula 02/25/23 13:55 61 11 L 106/59 L 94 Nasal Cannula 02/25/23 13:45 60 18 121/66 99 Nasal Cannula 02/25/23 13:35 61 19 118/74 99 Nasal Cannula 02/25/23 13:25 60 16 138/79 99 Nasal Cannula 02/25/23 13:15 52 L 16 134/73 99 Oxymask 02/25/23 13:05 56 L 16 125/62 97 Oxymask 02/25/23 12:55 36.0 C L 75 14 135/68 95 Oxymask 02/25/23 08:20 36.5 C 64 18 168/93 H 96 Room Air O2 Flow Rate 02/25/23 17:04 02/25/23 16:01 2 02/25/23 15:35 2 02/25/23 14:50 2 02/25/23 14:35 2 02/25/23 14:20 2 02/25/23 14:05 2 02/25/23 13:55 2 02/25/23 13:45 2 02/25/23 13:35 2 02/25/23 13:25 2 02/25/23 13:15 4 02/25/23 13:05 6 02/25/23 12:55 6 02/25/23 08:20 Laboratory Results Abnormal lab results 02/25/23 Range/Units 08:31 Crossmatch See Detail Diagnostic Findings Lumbar Spine X-Ray 02/25/23 09:35 FL lumbar spine 2-3V CLINICAL HISTORY: L2-L4 DECOMPRESSION AND FUSION POSSIBLE L1-2/L4-S1 HW REMOVAL COMPARISON STUDY: Lumbar spine MRI 02/12/2021. FLUOROSCOPY TIME: 21 seconds FLUOROSCOPY IMAGES: 3 Ka,r: 13.4 mGy FINDINGS: Posterior decompression and fusion from L2 through S1 with pedicle screws and rods. Disc spacers are noted at the L2-L3 and L3-L4 levels which are new compared to the prior study. Retroperitoneal surgical clips are noted. The hardware appears intact. IMPRESSION: Fluoroscopic assistance as above ACT 112: Negative or not required by law. Electronically signed by: Galo Kumar M.D. 02/25/2023 1:52 PM PG Care Time/CCT Total # of Minutes Spent Total Time Spent with Patient: Total time spent is greater than 50% in coordination of care (as documented) at patient's floor/unit and/or counseling patient: Coding Diagnoses S/P lumbar spine operation Z98.890 Sensorineural hearing loss of both ears H90.3 Depression F32.9 Esophageal reflux K21.9 Obstructive sleep apnea G47.33
[2023-02-25] MEDS: oxyCODONE HCL IR 5 MG TAB (IMMEDIATE RELEASE) PO PRN ×2 (17:43→22:41)
[2023-02-25] MEDS: ceFAZolin 2000MG 2,000 MG/15 ML SYR IV SCH (17:47)
[2023-02-25] MEDS: buPROPion SR 150 MG TABCR PO SCH (21:17)
[2023-02-25] MEDS: lamoTRIgine 100 MG TAB PO SCH (21:18)
[2023-02-25] MEDS: DULoxetine HCL 60 MG CAP PO SCH (21:18)
[2023-02-25] MEDS: busPIRone 15 MG TAB PO SCH (21:18)
[2023-02-25] MEDS: DOCUSATE SODIUM/SENNA 50/8.6MG TAB PO SCH (21:20)
[2023-02-26] MEDS: LACTATED RINGER'S 1,000 ML IV SCH (01:25)
[2023-02-26] MEDS: ceFAZolin 2000MG 2,000 MG/15 ML SYR IV SCH (03:20)
[2023-02-26] MEDS: POLYETHYLENE (MIRALAX) 17 GM PACK PO SCH ×4 (05:17→21:20)
[2023-02-26] MEDS: oxyCODONE HCL IR 5 MG TAB (IMMEDIATE RELEASE) PO PRN ×6 (05:21→23:28)
[2023-02-26] MEDS: dexAMETHasone 6 MG in SYRINGE 0 ML IV SCH (07:23)
[2023-02-26] MEDS: buPROPion SR 150 MG TABCR PO SCH ×2 (07:24→21:11)
[2023-02-26] MEDS: busPIRone 15 MG TAB PO SCH ×2 (07:24→21:11)
[2023-02-26] MEDS: DULoxetine HCL 60 MG CAP PO SCH ×2 (07:24→21:12)
[2023-02-26] MEDS: PANTOprazole 40 MG TAB PO SCH (07:24)
[2023-02-26 07:30] LABS: Basophils # (auto) 0.03 K/uL (0.00-0.20); Basophils % (auto) 0.4 %; Eosinophils # (auto) 0.02 K/uL (0.00-0.50); Eosinophils % (auto) 0.2 %; Hematocrit (blood only) 30.4 % (42.0-52.0); Hemoglobin 10.1 g/dl (14.0-18.0); Immature Granulocytes # (auto) 0.03 K/uL (0.01-0.20); Immature Granulocytes % (auto) 0.4 %; Lymphocytes # (auto) 1.14 K/uL (1.20-3.40); Lymphocytes % (auto) 13.5 %; Mean Corpuscular Hemoglobin 29.3 pg (25.0-34.0); Mean Corpuscular Hgb Conc 33.2 g/dL (32.0-36.0); Mean Corpuscular Volume 88.1 fL (80.0-100.0); Mean Platelet Volume 10.3 fL (9.4-12.4); Monocytes # (auto) 0.88 K/uL (0.11-0.59); Monocytes % (auto) 10.4 %; Neutrophils # (auto) 6.33 K/uL (1.40-6.50); Neutrophils % (auto) 75.1 %; Platelet Count 260 K/uL (130-400); RDW Coefficient of Variation 13.2 % (11.5-14.5); RDW Standard Deviation 42.5 fL (36.4-46.3); Red Blood Count 3.45 M/uL (4.70-6.10); White Blood Count 8.43 K/ul (4.8-10.8)
[2023-02-26 07:52] LABS: BUN Creatinine Ratio 12.7 (10-20); Creatinine Clr Calc Pharmacy 96.3 ml/min; Est GFR (African American) 109.2 ml/min; Est GFR (Non-African American) 94.2 ml/min; Potassium 4.3 mmol/L (3.5-5.1)
--- NOTE | 2023-02-26 10:36 | Orthopedic Progress Note ---
Date of Service February 26, 2023 Assessment & Plan (1) Lumbosacral radiculopathy at L3: Plan: At this time continue physical therapy monitor his MARIA VICTORIA output of the discharge home next few days. Admission and Anticipated Discharge Date Admission Date: February 25, 2023 Subjective Back pain controlled leg pain markedly improved Physical Exam Physical Exam: Patient is in the chair at the bedside. Is comfortable. Is concerned to testing. Results & Data Vital Signs (Past 12 Hours) Vital Signs Temp Pulse Resp BP Pulse Ox O2 Del Method 02/26/23 08:00 Room Air 02/26/23 07:19 36.7 C 69 16 102/52 L 98 Room Air 02/26/23 03:00 36.9 C 68 18 112/65 96 Room Air 02/25/23 23:00 37.0 C 79 18 118/70 93 Room Air
--- NOTE | 2023-02-26 11:29 | Hospitalist Consultation ---
Date of Consultation February 26, 2023 Assessment & Plan (1) S/P lumbar spine operation: 02/25 Dr. Montague - removal of instrumentation L4-S1, fusion L2-L4 Acute blood loss anemia -Pain control/DVT proh/Bowel regiment/IV fluids per primary team -PT/OT - Hgb: 10.1, recheck AM (2) Depression: - continue home Wellbutrin, buspar, cymbalta and lamictal (3) Esophageal reflux: - Continue Protonix (4) Obstructive sleep apnea: continued cpap Plan Dispo: medically stable, will trend Hgb History of Present Illness Attending Physician: Ace Montague, DO History of Present Illness 1110 - Patient resting in bed. Overall feeling well, recieved norco about an hour ago. Has worked with PT and been ambulating in the halls. Passing gas, but no BM. Has not urinated since removal of engle. Good appetite. Denies CP or SOB. Allergies Allergy/AdvReac Type Severity Reaction Status Date / Time No Known Allergies Allergy Verified 02/25/23 08:18 Home Medications Medication Instructions Recorded Confirmed Type lorazepam 0.5 mg tablet 0.5 mg PO DAILY PRN Anxiety 10/22/18 02/25/23 History halobetasol propionate 0.05 % 1 appln topical DAILY PRN Rash 11/22/19 02/25/23 History topical cream duloxetine 60 mg capsule,delayed 60 mg PO BID 12/20/20 02/25/23 History release (Cymbalta) buspirone 30 mg tablet 15 mg PO BID 11/30/21 02/25/23 History sildenafil 50 mg tablet 50 mg PO DAILY PRN sexual activity 09/25/22 02/25/23 Rx #14 tabs lamotrigine 100 mg tablet 100 mg PO HS 10/24/22 02/25/23 History pantoprazole 40 mg tablet,delayed 40 mg PO QAM 02/03/23 02/25/23 History release bupropion HCl 150 mg tablet,12 hr 150 mg PO BID 02/11/23 02/25/23 History sustained-release (Wellbutrin SR) oxycodone 5 mg tablet 5 mg PO Q6H PRN pain #30 tabs 02/26/23 Rx tramadol 50 mg tablet 50 mg PO Q6H PRN pain, moderate 02/26/23 Rx #30 tabs Patient History Medical History Seasonal allergies Elevated blood pressure reading without diagnosis of hypertension Chronic back pain History of COVID-19 03/29/2021-myalgias, chills, productive cough-recovered at home- symptoms resolved Anxiety and depression stable per pt Chronic anemia Hgb 12-13 over the past year Neurogenic claudication due to lumbar spinal stenosis Right foot drop Xerostomia Peripheral neuropathy right hand Obstructive sleep apnea CPAP-nightly History of testicular cancer Age 23 s/p chemo and orchiectomy, radical lymph node excision Hearing loss No hearing aids Esophageal reflux controlled, stable per pt Tran's esophagus Surgical History (Updated 02/25/23 @ 17:23 by Galo Thakur PA-C) History of surgery left hand after table saw accident History of reverse total replacement of right shoulder joint History of back surgery back procedure, Discseel, done in [facility] with Dr Jeff He. 05/08/21. S/P lumbar spine operation L4-S1 decompression/fusion (11/22/19): Grade view 1, MAC#3, ETT 7.5 at [facility]. No issues per anesthesia postop progress note. S/P arthroscopy of right shoulder rotator cuff repair Hx of colonoscopy Hx of laceration of skin Left ring finger (accident with saw) H/O esophagogastroduodenoscopy History of orchiectomy History of dental surgery Implant Family History Unknown Cancer Mother Anxiety Hypotension Father Pancreatic cancer Hearing loss Deafness Depression COPD (chronic obstructive pulmonary disease) Grandmother No problems noted. Uncle Colon cancer Grandfather No problems noted. Uncle Cancer Grandmother (Paternal) Family history of diabetes mellitus Other Diabetes No family history of adverse response to anesthesia No family history of bleeding disorder Denies family history of Ovarian cancer Prostate cancer Myocardial infarction Breast cancer Social History Smoking Status: Never smoker Second Hand Exposure: Yes (hx as child); Do You Dip or Chew Tobacco: No; Tobacco Cessation Education Requested by Patient: No Hx Alcohol Use: Yes Alcohol type: hard liquor Hx Substance Use: No Preferred Language: Cuban Communication Ability: Effective Visual Impairment: Limited Hearing Ability: Hard of Hearing Manager Mental Health Required: No Beliefs That Will Affect Care: None marital status: Current Living Situation: Spouse current occupational status: employed Other Information That Helps Us Care for You: No Feels Safe at Home: Yes Safety Concerns: Feels Safe At This Time Childhood Exposure to Second-Hand Smoke: Yes Dental Care, Regularly: Yes Physical Activity Frequency: Daily Seatbelt Use: always Sunscreen Use: Yes Assistive Devices: CPAP Review of Systems Review of Systems: All systems reviewed & are unremarkable except as noted in Subjective Physical Exam Constitutional: WD/WN, vitals as above Respiratory: normal respiratory effort, lungs clear to auscultation Cardiovascular: RRR, no murmur, no edema Gastrointestinal (Abdomen): normal bowel sounds, soft, nontender, no hepatosplenomegaly Skin: Dressing c/d/i. Drain with sanguinous fluid Psychiatric: A+Ox3, euthymic affect Results & Data Results & Data Vital Signs (Past 12 Hours) Vital Signs Temp Pulse Resp BP Pulse Ox O2 Del Method 02/26/23 08:00 Room Air 02/26/23 07:19 36.7 C 69 16 102/52 L 98 Room Air 02/26/23 03:00 36.9 C 68 18 112/65 96 Room Air Laboratory Results Laboratory Results - last 24 hr 02/26/23 06:51 WBC 8.43 RBC 3.45 L Hgb 10.1 L Hct 30.4 L MCV 88.1 MCH 29.3 MCHC 33.2 RDW Std Deviation 42.5 RDW Coeff of Serina 13.2 Plt Count 260 MPV 10.3 Immature Gran % (Auto) 0.4 Neut % (Auto) 75.1 Lymph % (Auto) 13.5 [place] % (Auto) 10.4 Eos % (Auto) 0.2 Baso % (Auto) 0.4 Neut # (Auto) 6.33 Lymph # (Auto) 1.14 L [place] # (Auto) 0.88 H Eos # (Auto) 0.02 Baso # (Auto) 0.03 Immature Gran # (Auto) 0.03 Sodium 135 L Potassium 4.3 Chloride 101 Carbon Dioxide 30 Anion Gap 4 BUN 10 Creatinine 0.79 Est Cr Clr Drug Dosing 96.3 Est GFR ( Amer) 109.2 Est GFR (Non-Af Amer) 94.2 BUN/Creatinine Ratio 12.7 Glucose 129 H Calcium 9.0 PG Care Time/CCT Total # of Minutes Spent Total Time Spent with Patient: Total time spent is greater than 50% in coordination of care (as documented) at patient's floor/unit and/or counseling patient: Coding Level of Care Code 80963 IN/OBS CONSULT LVL 2,35M Diagnoses S/P lumbar spine operation Z98.890 Depression F32.9 Esophageal reflux K21.9 Obstructive sleep apnea G47.33
[2023-02-26] MEDS: DOCUSATE SODIUM/SENNA 50/8.6MG TAB PO SCH (21:12)
[2023-02-26] MEDS: lamoTRIgine 100 MG TAB PO SCH (21:12)
[2023-02-27] MEDS: POLYETHYLENE (MIRALAX) 17 GM PACK PO SCH (05:03)
[2023-02-27 07:06] LABS: Hematocrit (blood only) 28.8 % (42.0-52.0); Hemoglobin 9.6 g/dl (14.0-18.0); Mean Corpuscular Hemoglobin 29.1 pg (25.0-34.0); Mean Corpuscular Hgb Conc 33.3 g/dL (32.0-36.0); Mean Corpuscular Volume 87.3 fL (80.0-100.0); Mean Platelet Volume 10.7 fL (9.4-12.4); Platelet Count 249 K/uL (130-400); RDW Coefficient of Variation 13.3 % (11.5-14.5); RDW Standard Deviation 42.4 fL (36.4-46.3)
[2023-02-27] MEDS: dexAMETHasone 6 MG in SYRINGE 0 ML IV SCH (08:08)
[2023-02-27] MEDS: PANTOprazole 40 MG TAB PO SCH (08:08)
[2023-02-27] MEDS: oxyCODONE HCL IR 5 MG TAB (IMMEDIATE RELEASE) PO PRN (08:08)
[2023-02-27] MEDS: busPIRone 15 MG TAB PO SCH (08:08)
[2023-02-27] MEDS: DULoxetine HCL 60 MG CAP PO SCH (08:08)
[2023-02-27] MEDS: buPROPion SR 150 MG TABCR PO SCH (08:08)
--- NOTE | 2023-02-27 08:43 | Communication Note ---
Date of Service: February 27, 2023 Patient chart reviewed, no acute medical issues. Medically stable. Hospitalist service will sign off at this time. Thank you for allowing us to participate in care of Mr. Espinal, please contact us with any new issues.
--- NOTE | 2023-02-27 09:15 | Discharge Summary ---
Date of Service February 27, 2023 Admission HPI Per Admitting Provider This is a 67-year-old male who presents with chronic persistent back and leg pain after failing since course of nonoperative care is here for surgical invention. Principal Diagnosis Lumbar spinal stenosis with neurogenic claudication Discharge Data Allergies Allergy/AdvReac Type Severity Reaction Status Date / Time No Known Allergies Allergy Verified 02/25/23 08:18 Consultations 02/25/23 15:03 Consult Hospitalist Routine Procedures Performed Operation Date: 02/25/23 09:35 Actual Procedures p L2-L4 Decompression and Fusion, L1-L2, Spinal Cord Monitoring(Not Applicable) - Ace Montague DO s L4-S1 Hardware Removal(Not Applicable) - Ace Montague DO Ordered Studies 02/25/23 09:35 [place] lumbar spine 2-3V Routine Hospital Course (1) Lumbosacral radiculopathy at L3: Patient with limited motion fusion tolerated this well was taken to orthopedic floor postoperatively. Postoperatively progressed appropriately. Ambulating well. Extra strength testing. Separately discharged home. He is discharged home with his drain will follow-up in the office for removal. Remaining discharge orders instructions found in chart for further review. Total Time Total Time Spent Total Time Spent (In Minutes): 20 minutes Discharge Plan Discharge Items Patient Disposition: Home - Self-Care Reason For Visit: Spinal Stenosis, Lumbar Region with Neurogenic Cla Discharge Diagnosis: Lumbar spinal stenosis with radiculopathy Activity: As commented below Non-emergency contact: Primary Care Provider Call non-emergency contact if: you have any medication questions Follow-up/Referrals: Keshav Cardozo MD [Primary Care Provider] - Diet: Regular Addtl Attending Provider Instructions: ACTIVITY RECOMMENDATIONS: SELF CARE INSTRUCTIONS AFTER THORACIC/LUMBAR FUSIONS 1. You may walk to your tolerance. It is good exercise for your legs and back. Expect some back and intermittent leg aches and pains. 2. You may perform "counter-top" level activities (make a sandwich, mk with a project, etc.). 3. No bending or lifting of more than 10 pounds or back twisting of any nature (roll like a log when turning in bed). 4. You may ride in a car for 20-30 minutes at a time. No driving until after your first visit with your doctor. 5. Frequent changes of position and restricting sitting to 30 minutes at a time will help limit the amount of back spasms and stiffness you may experience. 6. You may discontinue the use of ambulatory aids (cane, crutches, etc.) once your strength and confidence allow. 7. You may instructional supervisor the shower and let water strike your incision when you arrive home at least once daily. Do not take a tub bath, sit in a hot tub or go into a swimming pool until after your first recheck in the office. SPECIAL CARE INSTRUCTIONS: VERY IMPORTANT TO READ AND REVIEW A. Your surgical incision has been closed with a cosmetic suture under the skin that will dissolve in about 6 weeks. In 14 days, you can use a pair of clean scissors and cut the suture that is left outside of the skin at the ends of your incision. 1. The small skin tapes can be removed 7 days after surgery if they have not fallen off by that point. 2. You may keep the wound open to air as much as possible to promote healing after post-op day number 5 unless told otherwise by your doctor. 3. If you think the wound looks like it is becoming infected (redness or worsening drainage) and/or you are experiencing fever, chill or worsening back pain and muscle spasms, contact the office so that we may evaluate you as soon as possible. B. Complications are uncommon, but please contact us if you have any signs or symptoms of: 1. wound infection (fever higher than 102.5 degrees F, redness, separation of wound, drainage, or increasing pain from the incision) 2. blood clots in legs (pain, swelling, redness and warmth in legs) 3. urinary tract infection (fever higher than 102.5 degrees F, burning upon urination or increased frequency of urination) 4. nerve problems (inability to walk on your toes or heels, numbness, loss of bowel or bladder control) 5. any other symptoms that concern you C. Please call the office at if you have any concerns or questions about your operation or recovery. D. No smoking! Smoking drastically decreases the chance of a solid fusion. E. Do not take any anti-inflammatory medications (Indocin, Advil, Motrin, Aspirin, Naprosyn, etc.) as these may inhibit the chance of a solid fusion. Tylenol is okay to take for pain. MANAGING PAIN AFTER SPINAL SURGERY 1. Narcotic medication is intended for short-term use and will be provided for surgical pain. Surgical pain usually lasts for a period of 4-6 weeks. Narcotic medication includes Percocet, Vicodin, Darvocet, Tylenol #3 or Lortab. 2. Longer-term pain is more appropriately treated with non-narcotic medication such as Tylenol ES. 3. Muscle spasm is not appropriately treated with narcotics. Muscle relaxers such as Soma, Flexeril or Skelaxin can be used along with Tylenol ES. 4. Remember that we all live with some "aches and pains". This is not unusual or uncommon after an injury or as we get older. a. Back pain is expected and may include muscle spasms for 4 to 6 weeks after surgery. The pain should gradually improve. If the pain worsens for no apparent reason, please contact the office. b. Intermittent leg pain may also be experienced and should not be concerned about unless it worsens for no apparent reason. If so, please contact the office. 5. We will provide appropriate medication within the normal guidelines of their prescribed use. We will also be very cautious and aware of potential abuse and extended duration of patients' medication needs. a. Pain medications are for your comfort and to assist with sleep and rest so that the tissue can heal. They are not provided in order to return to normal activity and should not be used through the day. To do so or worsening pain at night can result from ongoing tissue damage and development of tolerance to the prescribed medicine. 6. Please allow 2-3 days to process refills. Prescriptions will not be mailed but must be picked up at the office. FOLLOW UP VISIT: Keep your scheduled follow-up appointment. Any questions, please call the office at . Pending Studies at Discharge: No Stand-Alone Forms: [employer] [facility], Smoking Cessation Medications and DC Order Prescriptions: New tramadol 50 mg tablet 50 mg PO Q6H PRN (Reason: pain, moderate) Qty: 30 0RF oxycodone 5 mg tablet 5 mg PO Q6H PRN (Reason: pain) Qty: 30 0RF Continued sildenafil 50 mg tablet 50 mg PO DAILY PRN (Reason: sexual activity) Qty: 14 0RF Rx Instructions: administer 30 minutes to 4 hours before activity lorazepam 0.5 mg tablet 0.5 mg PO DAILY PRN (Reason: Anxiety) duloxetine [Cymbalta] 60 mg capsule,delayed release(DR/EC) 60 mg PO BID halobetasol propionate 0.05 % cream 1 appln TOP DAILY PRN (Reason: Rash) Rx Instructions: do not use occlusive dressing pantoprazole 40 mg tablet,delayed release (DR/EC) 40 mg PO QAM bupropion HCl [Wellbutrin SR] 150 mg Tablet Sustained-Release 12 Hr 150 mg PO BID buspirone 30 mg tablet 15 mg PO BID lamotrigine 100 mg tablet 100 mg PO HS Discharge Orders: Discharge Order (Routine); Ordered 02/27/23 Ordered By: Ace Montague Admission Data Admit Date/Time: 02/25/23 12:48 Attending Provider: Ace Montague Admit Provider: Ace Montague Primary Care Provider: Keshav Cardozo Other Providers: Chace Kauffman
[2023-02-27] MEDS ORDERED: oxyCODONE IR HOME PACK PO ONE (12:15)
== END 2023-02-27 12:28 | disposition home or self-care (01) | DRG 454 ==
LOC: ASU 07:59 → 3N 12:48